=== PATIENT | male | born 1975 | race Hispanic/Latino ===

== ENCOUNTER 2017-01-22 06:45 | Emergency (ER) | payer SELFPAY ==
[2017-01-22] MEDS ORDERED: Dexamethasone 10 MG/ML VIAL ONE (07:07)
== END 2017-01-22 07:12 | disposition home or self-care (01) ==
LOC: ERS 06:45
DX: H00.011 Hordeolum externum right upper eyelid (principal); E11.9 Type 2 diabetes mellitus without complications; E78.5 Hyperlipidemia, unspecified; I10 Essential (primary) hypertension
CPT/HCPCS: 99283; J1100

== ENCOUNTER 2017-10-27 15:09 | Emergency (ER) | payer BC, SELFPAY ==
[2017-10-27 16:00] LABS: #Basophils 0.1 thou/uL (0.0-0.2); #Eosinphils 0.1 thou/uL (0.0-0.7); #Lymphocytes 1.2 thou/uL (1.20-3.40); #Monocytes 0.4 thou/uL (0.11-0.59); #Neutrophils 5.4 thou/uL (1.40-6.50); %Basophils 0.9 % (0.0-1.0); %Monocytes 5.5 % (0.0-10.0); %Neutrophils 75.5 % (42.0-75.0); Hemoglobin 16.5 g/dL (14.0-18.0); Mean Corpuscular HGB CONC 35.7 g/dL (32.0-36.0); Mean Corpuscular Hemoglobin 31.3 pg (27.0-31.0); Mean Corpuscular Volume 87.9 fL (78.0-98.0); Platelet Count 227 thou/uL (130-400); RBC Distribution Width 12.1 % (11.5-14.5); Red Blood Cell (RBC) Count 5.26 mill/uL (4.70-6.10); White Blood Cell (WBC) Count 7.2 thou/uL (4.8-10.8)
[2017-10-27 16:24] LABS: ALT (SGPT) 24 U/L (8-55); AST (SGOT) 13 U/L (5-34); Albumin 3.8 g/dL (3.5-5.0); Alkaline Phosphatase 93 U/L (40-150); Anion Gap 12 mmol/L (10-20); BUN (Urea Nitrogen) 26 mg/dL (8.9-20.6); Bilirubin, Total 1.7 mg/dL (0.2-1.2); CK (CPK) 27 U/L (30-200); Calc. Creatinine Clearance 0 mL/min (70-130); Calcium 9.2 mg/dL (7.8-10.44); Carbon Dioxide 27 mmol/L (22-29); Chloride 104 mmol/L (98-107); Estimated GFR-MDRD 36; Globulin 3.1 g/dL (2.4-3.5); Glucose 257 mg/dL (70-105); Potassium 4.6 mmol/L (3.5-5.1); Protein, Total 6.9 g/dL (6.0-8.3); Sodium 138 mmol/L (136-145)
[2017-10-27 16:28] LABS: CKMB 1.3 ng/mL (0-6.6); Troponin I Less than 0.010 ng/mL (< 0.028)
[2017-10-27] MEDS ORDERED: Carvedilol 25 MG TAB PO SCH (17:30)
--- NOTE | 2017-10-27 17:40 | CT ---
HEAD CT WITHOUT CONTRAST: Date: 10/27/17 COMPARISON: 11/24/02. TECHNIQUE: Noncontrast head CT is performed from the skull base to the skull vertex. FINDINGS: No parenchymal hemorrhage. No extra-axial hematoma. No midline shift. Basilar cisterns are patent. Br ain volume is age-appropriated. Cortical quintero-white matter differentiation preserved. Ventricles and sulci are patent and symmetric. Calvarium is intact. Adequate aeration of the sinuses and mastoid air cells. IMPRESSION: No acute intracranial process. POS: [facility]
[2017-10-27 17:48] LABS: Bilirubin Negative (Negative); Blood, Urine Small (Negative); Clarity CLEAR (Clear); Glucose, Urine (Dipstick) 250 mg/dL (Negative); Leukocyte Negative (Negative); Nitrite Negative (Negative); Protein, Urine (Dipstick) 300 mg/dL (Neg-Trace); Specific Gravity, Urine 1.014 (1.002-1.036); Urobilinogen 0.2 mg/dL (0.2-1.0)
[2017-10-27 17:50] LABS: Bacteria/HPF None Seen HPF (None Seen); Hyaline Casts/LPF 0-3 HYALINE CAST LPF (0-3 Hyaline); Pathc Cast-AUWi Flag 0.14 (0-2.49); Squamous Epithelial 0-3 HPF (0-3); WBC/HPF 0-3 HPF (0-3)
== END 2017-10-27 17:58 | disposition home or self-care (01) ==
LOC: ERS 15:09
DX: R42 Dizziness and giddiness (principal); E11.9 Type 2 diabetes mellitus without complications; E78.5 Hyperlipidemia, unspecified; I10 Essential (primary) hypertension; Z79.899 Other long term (current) drug therapy
CPT/HCPCS: 36415; 36416; 70450; 80053; 81003; 81015; 82550; 82553; 84484; 85025; 93005; 96360

== ENCOUNTER 2017-12-10 06:47 | Inpatient (IN) | payer BC ==
[2017-12-10] MEDS ORDERED: Clindamycin/D5W 600 mg/50 ml Premix Bag ONE (08:10)
[2017-12-10 08:15] LABS: Hemoglobin 15.1 g/dL (14.0-18.0); Mean Corpuscular HGB CONC 36.1 g/dL (32.0-36.0); Mean Corpuscular Hemoglobin 31.5 pg (27.0-31.0); Mean Corpuscular Volume 87.2 fL (78.0-98.0); Mean Platelet Volume 8.1 fL (7.4-10.4); Platelet Count 344 thou/uL (130-400); RBC Distribution Width 11.7 % (11.5-14.5); White Blood Cell (WBC) Count 12.6 thou/uL (4.8-10.8)
[2017-12-10 08:34] LABS: ALT (SGPT) 8 U/L (8-55); AST (SGOT) 6 U/L (5-34); Albumin 3.3 g/dL (3.5-5.0); Alkaline Phosphatase 122 U/L (40-150); Anion Gap 12 mmol/L (10-20); BUN (Urea Nitrogen) 18 mg/dL (8.9-20.6); Band 2 % (5-11); Bilirubin, Total 1.1 mg/dL (0.2-1.2); Calc. Creatinine Clearance 0 mL/min (70-130); Carbon Dioxide 28 mmol/L (22-29); Chloride 98 mmol/L (98-107); Estimated GFR-MDRD 32; Globulin 3.8 g/dL (2.4-3.5); Glucose 388 mg/dL (70-105); Lymphocytes 15 % (21-51); MDiff Complete? YES; Monocytes 2 % (0-10); Neutrophil 81 % (42-75); Potassium 3.9 mmol/L (3.5-5.1); Protein, Total 7.1 g/dL (6.0-8.3); RBC Morphology Normal; Sodium 134 mmol/L (136-145)
[2017-12-10] MEDS: HYDROcodone/Acetaminophen 5/325 mg Tablet PO PRN ×2 (13:16→17:02)
[2017-12-10 13:19] VITALS: BMI 26.3
[2017-12-10] MEDS ORDERED: Clindamycin/D5W 600 MG in Premix Bag 1 BAG IVPB SCH (15:00)
[2017-12-10] MEDS ORDERED: cloNIDine 0.1 MG TAB PO SCH (18:45)
[2017-12-10] MEDS ORDERED: Dextrose 50% Abboject 50 ML SYRINGE IVP PRN (18:46)
[2017-12-10] MEDS ORDERED: Dextrose 5% in Water 1,000 ML IV PRN (18:46)
[2017-12-10] MEDS ORDERED: Fentanyl 100 MCG/2 ML VIAL SLOW IVP PRN (18:46)
[2017-12-10] MEDS ORDERED: Insulin Regular 300 UNITS/3 ML VIAL SC PRN (18:46)
[2017-12-10] MEDS ORDERED: Acetaminophen 325 MG TAB PO PRN (19:44)
[2017-12-10] MEDS ORDERED: Pioglitazone HCl 15 MG TAB PO SCH (20:00)
[2017-12-10] MEDS ORDERED: cefTRIAXone\\ROCEPHIN 2 GM in Sodium Chloride 0.9% 100 ML IVPB SCH (20:00)
[2017-12-10] MEDS ORDERED: Carvedilol 25 MG TAB PO SCH (21:00)
[2017-12-10] MEDS: Sodium Chloride 0.45% 1,000 ML IV SCH (22:18)
[2017-12-10] MEDS: Carvedilol 25 MG TAB PO SCH (22:19)
[2017-12-10] MEDS: Aspirin 81 mg Enteric Coated Tablet PO SCH (22:19)
[2017-12-10] MEDS: Atorvastatin Calcium 10 MG TAB PO SCH (22:24)
--- NOTE | 2017-12-10 23:24 | CT ---
NONCONTRAST CT FACIAL BONES: 12/10/17 HISTORY: Facial cellulitis. FINDINGS: There is prominent edema and skin thickening involving the nose, predominantly on the right side with mild inflammatory changes seen involving the right sided facial subcutaneous soft tissues. There is thickening of the right platysma muscle. These findings may be related to patient's history of cellul itis. There is an enlarged level I lymph node present adjacent to the mandible on the right measuring 1.1 cm in short axis dimension with a few additional right sided lymph nodes which are likely reacti ve in origin. The orbits demonstrate a normal and symmetric appearance bilaterally. No post septal inflammatory georgette nges or fluid collection is identified. No fluid collection is seen in the subcutaneous soft tissues. There is a lucency seen within a posterior right mandibular molar which likely represents a dental ca leonor. Similar finding is seen involving what is felt to be the first right mandibular bicuspid tooth w ith prominent jesus as well as periapical lucency suggesting periapical abscess collection. Osseous s tructures are intact. There is polypoid mucosal thickening in each maxillary antrum. Mucosal thickening in each sphenoid si nus and bilateral ethmoidal air cells as well as each frontoethmoidal recess. Limited visualized mast oid air cells are clear. Lack of intravenous contrast does limit detail of the neck soft tissues. However, the bilateral parot id and submandibular glands demonstrate a grossly normal nonenhanced CT appearance. IMPRESSION: 1. Prominent subcutaneous soft tissue swelling and inflammatory changes involving the nose, much greater on the right. Lack of intravenous contrast does limit evaluation for small abscess collectio ns; although, no definitive well defined fluid collection is delineated on this exam. There are infla mmatory changes seen along the right facial soft tissues with thickening of the platysma. These findi ngs are likely related to cellulitis given the patient's clinical history. 2. Reactive lymphadenopathy. 3. Dental caries involving a posterior right mandibular molar as well as what is thought to be t he first bicuspid tooth right mandible. There is periapical lucency suggesting periapical abscess inv olving this tooth as well. 4. Sinus disease. POS: [facility]
[2017-12-11] MEDS: Clindamycin/D5W 900 MG in Premix Bag 1 BAG IVPB SCH ×5 (00:05→21:20)
--- NOTE | 2017-12-11 02:01 | HP ---
DATE OF ADMISSION: 12/10/2017 CHIEF COMPLAINT: Facial cellulitis. HISTORY OF PRESENT ILLNESS: The patient is a 42-year-old male who states that the day prior to comin g to the emergency room, he had what he felt was a zit in the inside of his nose. He popped it like a pimple and a lot of purulent material drained out of it. This actually occurred on Friday, which is 4 days ago. Since that time, he has noticed gradual increase in facial swelling and he began to have severe pain inside of his nose. He applied warm compresses as he had had symptoms similar to th is with a tooth a year ago. He denies any fever or changes in vision. He continued to take his usua l medications as he has diabetes. He does not check his blood sugar often though. When the pain bec gilmar too sharp and unbearable, he came to the emergency room for further evaluation. There, he rated his pain as a 9/10 and it was visually obvious he needed admission due to the swelling across of his whole face involving both eyes, nose, bridge of nose and upper lip. PAST MEDICAL HISTORY: Significant for diabetes type 2, hypertension, hyperlipidemia. He has had a f ractured right leg. PAST SURGICAL HISTORY: None. PAST PSYCHIATRIC HISTORY: None. SOCIAL HISTORY: Denies alcohol use or drug use. No smoking history either. He is and curre ntly working. ALLERGIES: He has no known drug allergies. MEDICATIONS: On admission include lisinopril 20 mg b.i.d., glyburide 2.5 mg daily, metformin 500 mg daily, carvedilol 25 mg b.i.d. and atorvastatin 20 mg at bedtime. REVIEW OF SYSTEMS: Constitutional: He denies fever, fatigue, chills. HEENT: He states he has had some vision changes with blurred vision and watering eyes. He has no sores in his ears, but his nose is extremely tender with sores and drainage. Pharynx without erythema or drainage. Neck: Denies p ainful range of motion. He does have some lymphadenopathy noted. Chest: Denies cough or dyspnea. Cardiovascular: Denies chest pain or palpitations. Abdomen: Denies nausea, vomiting, diarrhea. Ge nitourinary: Denies painful urination or blood in urine or stool. Musculoskeletal: Denies any back pain, musculoskeletal pain or limited range of motion. Skin: Positive for the aforementioned facia l changes of swelling, erythema, redness and tenderness starting with the nose and going laterally bi laterally. Neurologic: He denies headaches or trouble with mentation, paresthesias or areas of numb ness. Heme/Lymphatics: Positive for adenopathy in the neck. Otherwise, no other clots, swelling or edema. PHYSICAL EXAMINATION: At the time of admission, VITAL SIGNS: Blood pressure 174/102, pulse 84, respirations 16, temperature 98.8 with pain at a 9/10 , O2 sat 99% on room air. GENERAL: This is a well-developed, well-nourished male, alert, oriented and cooperati ve. HEENT: Completely disfigured face with swelling of bilateral cheeks, nose and upper lip area. It is warm to touch, red in color, hot, tender. Pupils equal, round and reactive to light with watering r ight eye. Extraocular muscles are intact. TMs and pharynx are clear. Nares have profuse thickened yellow-green discharge. NECK: Supple with adenopathy. CHEST: Clear to auscultation. HEART: Regular rate and rhythm. ABDOMEN: Soft, nontender, without organomegaly. GENITOURINARY: Deferred. EXTREMITIES: Without clubbing, cyanosis or edema. Normal range of motion present. SKIN: With the aforementioned facial changes of erythema, swelling, redness, tenderness and pain acr oss the nose, bridge, bilateral cheeks, eyes, upper lip. NEUROLOGIC: Cranial nerves appear grossly intact. Sensory exam is intact. Mental status is clear. I am not able to test gait and cerebellar function at this time. LABORATORY AND X-RAY FINDINGS: Lab work on admission, WBC 12.6, hemoglobin 15.1, hematocrit 41.9 wit h platelets at 344,000. Definite left shift with bandemia. Chemistries, sodium 134, potassium 3.9, chloride 98, CO2 28, BUN 18, creatinine 2.26 with a GFR at 32, glucose 388, albumin low at 3.3, globu orville high at 3.8. Liver functions are normal. Urinalysis is pending. CT of his face is pending. ASSESSMENT: 1. [id number] facial cellulitis. 2. Type 2 diabetes, uncontrolled. 3. Hypertension, uncontrolled secondary to pain. 4. General medical noncompliance to outpatient therapy. PLAN: 1. Will be IV antibiotics. We will try ceftriaxone and clindamycin. 2. CT of the face. 3. Pain management. 4. Control blood pressure. 5. Control blood sugar. 6. Serial reevaluation.
[2017-12-11 04:45] LABS: Anion Gap 13 mmol/L (10-20); BUN (Urea Nitrogen) 25 mg/dL (8.9-20.6); Calc. Creatinine Clearance 48 mL/min (70-130); Calcium 8.6 mg/dL (7.8-10.44); Carbon Dioxide 25 mmol/L (22-29); Cardiac Risk 4.6 (Less than 4.5); Chloride 96 mmol/L (98-107); Cholesterol 172 mg/dl (< 200 Desired); Estimated GFR-MDRD 29; Glucose 424 mg/dL (70-105); HDL Cholesterol 37 mg/dL (>60 Neg Risk); LDL Cholesterol, Calculated 87 mg/dL; Magnesium 1.5 mg/dL (1.6-2.6); Sodium 130 mmol/L (136-145); Triglycerides 241 mg/dL (Less than 150)
[2017-12-11 04:49] LABS: Band 7 % (5-11); Eosinophils 2 % (0-10); Hemoglobin 13.9 g/dL (14.0-18.0); Lymphocytes 12 % (21-51); MDiff Complete? YES; Mean Corpuscular HGB CONC 36.9 g/dL (32.0-36.0); Mean Corpuscular Hemoglobin 32.2 pg (27.0-31.0); Mean Corpuscular Volume 87.3 fL (78.0-98.0); Mean Platelet Volume 8.2 fL (7.4-10.4); Monocytes 9 % (0-10); Neutrophil 70 % (42-75); PLT Morphology Comment Appears Adequate; Platelet Count 337 thou/uL (130-400); RBC Distribution Width 11.5 % (11.5-14.5); White Blood Cell (WBC) Count 12.9 thou/uL (4.8-10.8)
[2017-12-11 06:06] LABS: Bilirubin Negative (Negative); Blood, Urine Trace (Negative); Clarity CLEAR (Clear); Glucose, Urine (Dipstick) >=1000 mg/dL (Negative); Leukocyte Negative (Negative); Nitrite Negative (Negative); Protein, Urine (Dipstick) 300 mg/dL (Neg-Trace); Specific Gravity, Urine 1.021 (1.002-1.036); pH, Urine 6.5 (5.0-9.0)
[2017-12-11 06:09] LABS: Bacteria/HPF None Seen HPF (None Seen); Hyaline Casts/LPF 0-3 HYALINE CAST LPF (0-3 Hyaline); Pathc Cast-AUWi Flag 0.14 (0-2.49); Squamous Epithelial 0-3 HPF (0-3); WBC/HPF 0-3 HPF (0-3)
[2017-12-11] MEDS: Sodium Chloride 0.45% 1,000 ML IV SCH ×3 (07:41→17:44)
[2017-12-11] MEDS ORDERED: metFORMIN 500 MG TAB PO SCH ×2 (08:00)
[2017-12-11] MEDS: glyBURIDE 2.5 MG TAB PO SCH (08:56)
[2017-12-11] MEDS: Carvedilol 25 MG TAB PO SCH ×2 (08:57→21:23)
[2017-12-11] MEDS: Pioglitazone HCl 15 MG TAB PO SCH (08:57)
[2017-12-11] MEDS ORDERED: Insulin Glargine 20 UNITS in Pre-Filled Syringe 1 EACH SC SCH (09:45)
[2017-12-11] MEDS ORDERED: SODIUM CHLORIDE 0.9% IVPB SCH (13:00)
[2017-12-11] MEDS ORDERED: CLINDAMYCIN IVPB SCH (13:00)
[2017-12-11] MEDS: HumaLOG 300 UNITS/3 ML VIAL SC PRN ×2 (13:30→21:24)
[2017-12-11] MEDS: HYDROcodone/Acetaminophen 5/325 mg Tablet PO PRN ×2 (17:43→21:28)
[2017-12-11] MEDS: Atorvastatin Calcium 10 MG TAB PO SCH (21:22)
[2017-12-11] MEDS: Aspirin 81 mg Enteric Coated Tablet PO SCH (21:22)
[2017-12-11] MEDS: Insulin Glargine 20 UNITS in Pre-Filled Syringe 1 EACH SC SCH (21:23)
[2017-12-11] MEDS: cefTRIAXone\\ROCEPHIN 2 GM in Sodium Chloride 0.9% 100 ML IVPB SCH (22:19)
[2017-12-12] MEDS: Clindamycin/D5W 900 MG in Premix Bag 1 BAG IVPB SCH ×4 (01:56→21:14)
[2017-12-12] MEDS: Sodium Chloride 0.45% 1,000 ML IV SCH ×3 (01:57→21:13)
[2017-12-12 04:25] LABS: #Basophils 0.1 thou/uL (0.0-0.2); #Eosinphils 0.3 thou/uL (0.0-0.7); #Lymphocytes 1.8 thou/uL (1.20-3.40); #Monocytes 1.3 thou/uL (0.11-0.59); #Neutrophils 9.3 thou/uL (1.40-6.50); %Basophils 0.6 % (0.0-1.0); %Eosinophils 2.7 % (0.0-10.0); %Lymphocytes 13.9 % (21.0-51.0); %Monocytes 10.4 % (0.0-10.0); %Neutrophils 72.4 % (42.0-75.0); Hemoglobin 12.7 g/dL (14.0-18.0); Mean Corpuscular Hemoglobin 31.6 pg (27.0-31.0); Mean Corpuscular Volume 87.7 fL (78.0-98.0); Mean Platelet Volume 7.8 fL (7.4-10.4); Platelet Count 365 thou/uL (130-400); RBC Distribution Width 11.6 % (11.5-14.5); Red Blood Cell (RBC) Count 4.01 mill/uL (4.70-6.10); White Blood Cell (WBC) Count 12.8 thou/uL (4.8-10.8)
[2017-12-12 04:37] LABS: Anion Gap 12 mmol/L (10-20); BUN (Urea Nitrogen) 24 mg/dL (8.9-20.6); Calc. Creatinine Clearance 56 mL/min (70-130); Calcium 8.5 mg/dL (7.8-10.44); Carbon Dioxide 27 mmol/L (22-29); Chloride 99 mmol/L (98-107); Estimated GFR-MDRD 35; Glucose 109 mg/dL (70-105); Potassium 3.4 mmol/L (3.5-5.1); Sodium 135 mmol/L (136-145)
[2017-12-12] MEDS: glyBURIDE 2.5 MG TAB PO SCH (09:02)
[2017-12-12] MEDS: Carvedilol 25 MG TAB PO SCH ×2 (09:03→21:15)
[2017-12-12] MEDS: Insulin Glargine 20 UNITS in Pre-Filled Syringe 1 EACH SC SCH ×2 (09:03→21:16)
[2017-12-12] MEDS: Pioglitazone HCl 15 MG TAB PO SCH (09:04)
--- NOTE | 2017-12-12 11:22 | ULT ---
BILATERAL RENAL ULTRASOUND COMPLETE: HISTORY: A 42-year-old male with a history of renal failure. FINDINGS: The right kidney measures 10.1 x 5.5 x 6.1 cm. The left kidney measures 10.5 x 5.8 x 5.7 cm. No evidence for renal hydronephrosis or perinephric process. The bladder is unremarkable. IMPRESSION: Unremarkable bilateral renal ultrasound. POS: [facility]
--- NOTE | 2017-12-12 12:31 | CON ---
DATE OF CONSULTATION: 12/12/2017 HISTORY OF PRESENT ILLNESS: Mr. Win is a 42-year-old male with known history of diabetes mellitus and admitted for facial cellulitis. He has been empirically treated with IV antibiotics. W e are now being consulted for his chronic renal failure. Please note this patient has known history of chronic renal failure with proteinuria. REVIEW OF SYSTEMS: Right facial swelling. No nausea, no vomiting, no chest pain, no shortness of br eath, no leg edema. No diarrhea, no constipation, no productive cough, no fever or chills, no abdomi nal pain. Appetite and energy level is fair. No headache, no diplopia, no hematuria, no diarrhea, n o constipation. MEDICATIONS: Assawoman 5/325 q.4 hours p.r.n., Ecotrin 81 mg tablet daily, Lipitor 10 mg at bedtime, Cor eg 25 mg p.o. b.i.d., ceftriaxone 2 grams IV q.24 hours, glucagon p.r.n., glyburide 2.5 mg p.o. q. da y, Humalog sliding scale, Actos 30 mg tab once a day, and 0.5% sodium chloride 125 mL per hour. PAST MEDICAL HISTORY: 1. Type 2 diabetes mellitus. 2. Chronic renal failure/proteinuria. 3. Hyperlipidemia. 4. Hypertension. PAST SURGICAL HISTORY: No significant surgeries. ALLERGIES: None. TRAUMA: Status post right leg fracture H7. IMMUNIZATIONS: Not up to date. The patient declining immunization. HOSPITALIZATIONS: Please see past medical history. FAMILY HISTORY: Positive family history of ESRD. Both parents were on dialysis. SOCIAL HISTORY: The patient lives in [place], 3 children. . 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 Education high school. No history of smoking, no alcohol. No drug abuse. No blood transfusi on. PHYSICAL EXAMINATION: VITAL SIGNS: Blood pressure is 90/103, heart rate 74, respiratory rate 14, temperature 98.2, pulse o x 98%. GENERAL: Awake, alert, comfortable, not in distress. SKIN: Adequate turgor. HEENT: Pinkish conjunctivae, anicteric sclerae. NECK: No neck mass, no carotid bruits, no JVD. CHEST: No deformities. LUNGS: Clear breath sounds, no wheezing, no crackles. HEART: Normal sinus rhythm. No murmur, gallops or rubs. ABDOMEN: Globular, soft, nontender, no masses. EXTREMITIES: No edema, no deformities. NEUROLOGIC: Awake, oriented to 3 spheres. Moving all extremities. No tremors, no asterixis, no lamar nirmal. LABORATORY DATA: On 12/12/2017 - white count 12.8, hemoglobin 12.7, sodium 135, potassium 3.4, chlor amarilis 99, carbon dioxide 27, BUN 24, creatinine 2.09, glucose 109, calcium 8.5. Further review of seru m creatinine shows the following 12/11/2017 creatinine 2.47. On 12/10/2017 creatinine 2.26. A urinalysis shows a protein of 300, RBC 7-10, WBC 0-3. ASSESSMENT AND PLAN: 1. Chronic renal failure - with the proteinuria and longstanding history of diabetes mellitus. He m ost likely has diabetic nephropathy. Renal function is noted to be stable. Continue gentle volume r epletion to see if we could further improve the renal function. The microscopic hematuria may be com patible with diabetic nephropathy. A renal ultrasound has been ordered. I had a long discussion wit h the patient regarding diagnosis and prognosis. I emphasized the importance of good diabetes contro l. 2. Hypertension. I will probably add nifedipine 30 mg XL tab once a day. Overall, agree with current management.
[2017-12-12] MEDS: HYDROcodone/Acetaminophen 5/325 mg Tablet PO PRN ×2 (16:21→21:16)
[2017-12-12] MEDS: hydrALAZINE 20 MG/ML VIAL SLOW IVP PRN ×2 (16:22→18:22)
[2017-12-12] MEDS: Aspirin 81 mg Enteric Coated Tablet PO SCH (21:15)
[2017-12-12] MEDS: Atorvastatin Calcium 10 MG TAB PO SCH (21:15)
[2017-12-12] MEDS: HumaLOG 300 UNITS/3 ML VIAL SC PRN (21:17)
[2017-12-12] MEDS: cefTRIAXone\\ROCEPHIN 2 GM in Sodium Chloride 0.9% 100 ML IVPB SCH (22:46)
[2017-12-13] MEDS: Clindamycin/D5W 900 MG in Premix Bag 1 BAG IVPB SCH ×4 (01:12→21:05)
[2017-12-13] MEDS: Sodium Chloride 0.45% 1,000 ML IV SCH ×3 (01:17→21:45)
[2017-12-13 04:16] LABS: #Basophils 0.1 thou/uL (0.0-0.2); #Eosinphils 0.3 thou/uL (0.0-0.7); #Lymphocytes 1.3 thou/uL (1.20-3.40); #Monocytes 0.8 thou/uL (0.11-0.59); %Basophils 0.6 % (0.0-1.0); %Eosinophils 2.6 % (0.0-10.0); %Lymphocytes 12.1 % (21.0-51.0); %Monocytes 7.9 % (0.0-10.0); %Neutrophils 76.8 % (42.0-75.0); Hemoglobin 13.5 g/dL (14.0-18.0); Mean Corpuscular HGB CONC 35.5 g/dL (32.0-36.0); Mean Corpuscular Hemoglobin 31.3 pg (27.0-31.0); Mean Corpuscular Volume 88.1 fL (78.0-98.0); Mean Platelet Volume 7.7 fL (7.4-10.4); Platelet Count 415 thou/uL (130-400); RBC Distribution Width 11.5 % (11.5-14.5); Red Blood Cell (RBC) Count 4.31 mill/uL (4.70-6.10); White Blood Cell (WBC) Count 10.4 thou/uL (4.8-10.8)
[2017-12-13 04:34] LABS: Anion Gap 12 mmol/L (10-20); BUN (Urea Nitrogen) 23 mg/dL (8.9-20.6); Calc. Creatinine Clearance 58 mL/min (70-130); Carbon Dioxide 27 mmol/L (22-29); Chloride 100 mmol/L (98-107); Estimated GFR-MDRD 36; Glucose 84 mg/dL (70-105); Potassium 3.4 mmol/L (3.5-5.1); Sodium 136 mmol/L (136-145)
[2017-12-13] MEDS: Carvedilol 25 MG TAB PO SCH ×2 (08:45→21:06)
[2017-12-13] MEDS: Pioglitazone HCl 15 MG TAB PO SCH (08:46)
[2017-12-13] MEDS: Insulin Glargine 20 UNITS in Pre-Filled Syringe 1 EACH SC SCH ×2 (08:47→21:05)
[2017-12-13] MEDS: glyBURIDE 2.5 MG TAB PO SCH (08:47)
[2017-12-13] MEDS ORDERED: NIFEdipine XL 30 MG TAB PO SCH (09:00)
--- NOTE | 2017-12-13 10:17 | PRG ---
DATE OF SERVICE: 12/13/2017 SERVICE: Renal Medicine. SUBJECTIVE: Mr. Win is a 42-year-old male who was seen for his chronic renal failure seco ndary to presumed diabetic nephropathy. He did have a longstanding history of diabetes mellitus and he had proteinuria. He has been given volume repletion and currently still receiving IV fluid and re nal function has been stabilizing. His initial creatinine on admission was noted at 2.47 and is now currently 2.04. He has no other complaints. Please note, he was admitted for facial cellulitis and this has been clinically improving with IV antibiotics. No complaints of chest pain or shortness of breath. PHYSICAL EXAMINATION: VITAL SIGNS: Blood pressure is 189/101, heart rate 77, respiratory rate 16, temperature 97.4, pulse ox 98%. GENERAL: Noted to be awake, alert, comfortable, not in distress. SKIN: Adequate turgor. HEENT: Pinkish conjunctivae, anicteric sclerae. NECK: No neck mass, no carotid bruits, no JVD. CHEST: No deformities. LUNGS: Clear breath sounds. HEART: Normal sinus rhythm. No murmur, no gallops, no rubs. ABDOMEN: Globular, soft, nontender, no masses. EXTREMITIES: No edema. No deformities. MEDICATIONS: Of 12/13/2017 was reviewed. LABORATORY DATA: Of 12/13/2017, sodium 136, potassium 3.4, chloride 100, carbon dioxide 27, BUN 23, creatinine 2.04, calcium 9.0. Renal ultrasound was within normal. Urinalysis of 12/11/2017 showed a protein of 300. ASSESSMENT AND PLAN: 1. Acute kidney injury/chronic renal failure - superimposed prerenal azotemia. Currently on IV hydr ation with improvement of the renal function. Continue supportive care. No indication for any dialy tic intervention. 2. Chronic renal failure, most likely secondary to diabetic nephropathy. For completion, I will be checking a hepatitis B surface antigen and hepatitis C antibody with this patient. 3. Hypertension, still not optimal. Recently, Procardia was added. Continue blood pressure medicat ions. 4. Facial cellulitis, clinically improving. Continue IV antibiotics.
[2017-12-13] MEDS: HumaLOG 300 UNITS/3 ML VIAL SC PRN (12:47)
[2017-12-13] MEDS ORDERED: Mupirocin 2% Ointment (Nasal) 1 GM TUBE EA NARE SCH (21:00)
[2017-12-13] MEDS: Mupirocin 2% Ointment 22 GM Tube TOP SCH (21:05)
[2017-12-13] MEDS: Aspirin 81 mg Enteric Coated Tablet PO SCH (21:06)
[2017-12-13] MEDS: Atorvastatin Calcium 10 MG TAB PO SCH (21:06)
[2017-12-13] MEDS: NIFEdipine XL 30 MG TAB PO SCH (21:06)
[2017-12-13] MEDS: cefTRIAXone\\ROCEPHIN 2 GM in Sodium Chloride 0.9% 100 ML IVPB SCH (22:31)
[2017-12-14] MEDS: Clindamycin/D5W 900 MG in Premix Bag 1 BAG IVPB SCH ×4 (02:40→20:08)
[2017-12-14] MEDS: Sodium Chloride 0.45% 1,000 ML IV SCH ×3 (02:42→17:47)
[2017-12-14 05:31] LABS: #Basophils 0.1 thou/uL (0.0-0.2); #Eosinphils 0.3 thou/uL (0.0-0.7); #Lymphocytes 1.8 thou/uL (1.20-3.40); #Monocytes 0.7 thou/uL (0.11-0.59); #Neutrophils 4.4 thou/uL (1.40-6.50); %Basophils 0.9 % (0.0-1.0); %Eosinophils 3.7 % (0.0-10.0); %Lymphocytes 24.5 % (21.0-51.0); %Monocytes 10.1 % (0.0-10.0); %Neutrophils 60.8 % (42.0-75.0); Hemoglobin 12.4 g/dL (14.0-18.0); Mean Corpuscular HGB CONC 35.4 g/dL (32.0-36.0); Mean Corpuscular Volume 87.7 fL (78.0-98.0); Mean Platelet Volume 7.4 fL (7.4-10.4); Platelet Count 355 thou/uL (130-400); RBC Distribution Width 11.5 % (11.5-14.5); Red Blood Cell (RBC) Count 3.99 mill/uL (4.70-6.10); White Blood Cell (WBC) Count 7.3 thou/uL (4.8-10.8)
[2017-12-14 05:36] LABS: Anion Gap 10 mmol/L (10-20); BUN (Urea Nitrogen) 21 mg/dL (8.9-20.6); Calc. Creatinine Clearance 63 mL/min (70-130); Calcium 8.5 mg/dL (7.8-10.44); Carbon Dioxide 26 mmol/L (22-29); Chloride 105 mmol/L (98-107); Estimated GFR-MDRD 40; Glucose 106 mg/dL (70-105); Potassium 3.2 mmol/L (3.5-5.1); Sodium 138 mmol/L (136-145)
[2017-12-14] MEDS: glyBURIDE 2.5 MG TAB PO SCH (08:06)
[2017-12-14] MEDS: NIFEdipine XL 30 MG TAB PO SCH ×2 (08:07→20:07)
[2017-12-14] MEDS: Insulin Glargine 20 UNITS in Pre-Filled Syringe 1 EACH SC SCH ×2 (08:07→20:09)
[2017-12-14] MEDS: Carvedilol 25 MG TAB PO SCH ×2 (08:07→20:08)
[2017-12-14] MEDS: Mupirocin 2% Ointment 22 GM Tube TOP SCH ×3 (08:08→20:10)
[2017-12-14] MEDS: Pioglitazone HCl 15 MG TAB PO SCH (08:08)
--- NOTE | 2017-12-14 10:12 | PRG ---
DATE OF SERVICE: 12/14/2017 RENAL MEDICINE SUBJECTIVE: Mr. Win is a 42-year-old male who was seen for his acute kidney injury on top of his chronic renal failure. He has underlying diabetic nephropathy. He also was initially admitt ed for facial cellulitis. He is clinically improving with the facial cellulitis, no acute events not ed last night. No new complaints. No chest pain, no shortness of breath. PHYSICAL EXAMINATION: VITAL SIGNS: Blood pressure 149/88, heart rate 73, respiratory rate 18, temperature 98.1, pulse ox 9 8%. GENERAL: Awake, alert, comfortable, not in distress. SKIN: Adequate turgor. HEENT: Pinkish conjunctivae, anicteric sclerae. NECK: No neck mass, no carotid bruits, no JVD. CHEST: No deformities. LUNGS: Clear breath sounds. HEART: Normal sinus rhythm. No murmur, no gallops or rubs. ABDOMEN: Globular, soft, nontender. No masses. EXTREMITIES: No edema, no deformities. MEDICATIONS: 12/14/2017 reviewed. LABORATORY DATA: 12/14/2017, white count 7.3, hemoglobin 12.4. Sodium 138, potassium 3.2, chloride 105, carbon dioxide 26, BUN 21, creatinine 1.87, glucose 106, calcium 8.5. ASSESSMENT AND PLAN: 1. Mild hypokalemia - KCl 40 mEq 1 tab x1 dose. 2. Acute kidney injury - hemodynamically mediated renal dysfunction, slowly improving with volume re pletion. 3. Chronic renal failure - with the proteinuria, longstanding history of diabetes, most likely diabe tic nephropathy. 4. Facial cellulitis, improving on IV antibiotics. Currently on clindamycin and IV ceftriaxone. We will go ahead and recheck another base met and CBC in a.m. as well as for hepatitis B and C.
[2017-12-14] MEDS ORDERED: Potassium Chloride 20 MEQ TAB PO SCH (10:15)
[2017-12-14] MEDS: HumaLOG 300 UNITS/3 ML VIAL SC PRN (13:13)
[2017-12-14] MEDS: Atorvastatin Calcium 10 MG TAB PO SCH (20:07)
[2017-12-14] MEDS: Aspirin 81 mg Enteric Coated Tablet PO SCH (20:08)
[2017-12-14] MEDS: Sodium Chloride 0.65% Nasal 44 ML BOT EA NARE SCH (20:11)
[2017-12-14] MEDS: cefTRIAXone\\ROCEPHIN 2 GM in Sodium Chloride 0.9% 100 ML IVPB SCH (20:14)
[2017-12-15] MEDS: Clindamycin/D5W 900 MG in Premix Bag 1 BAG IVPB SCH ×4 (01:40→20:46)
[2017-12-15] MEDS: Sodium Chloride 0.45% 1,000 ML IV SCH ×3 (03:45→20:47)
[2017-12-15 05:09] LABS: #Basophils 0.1 thou/uL (0.0-0.2); #Eosinphils 0.3 thou/uL (0.0-0.7); #Lymphocytes 1.5 thou/uL (1.20-3.40); #Monocytes 0.6 thou/uL (0.11-0.59); #Neutrophils 3.6 thou/uL (1.40-6.50); %Basophils 1.1 % (0.0-1.0); %Eosinophils 4.1 % (0.0-10.0); %Lymphocytes 24.5 % (21.0-51.0); %Monocytes 10.5 % (0.0-10.0); %Neutrophils 59.8 % (42.0-75.0); Hemoglobin 12.5 g/dL (14.0-18.0); Mean Corpuscular HGB CONC 35.7 g/dL (32.0-36.0); Mean Corpuscular Hemoglobin 31.7 pg (27.0-31.0); Mean Corpuscular Volume 88.6 fL (78.0-98.0); Mean Platelet Volume 7.6 fL (7.4-10.4); Platelet Count 359 thou/uL (130-400); RBC Distribution Width 11.7 % (11.5-14.5); Red Blood Cell (RBC) Count 3.93 mill/uL (4.70-6.10); White Blood Cell (WBC) Count 6.1 thou/uL (4.8-10.8)
[2017-12-15 05:27] LABS: Anion Gap 12 mmol/L (10-20); BUN (Urea Nitrogen) 19 mg/dL (8.9-20.6); Calc. Creatinine Clearance 65 mL/min (70-130); Calcium 8.3 mg/dL (7.8-10.44); Carbon Dioxide 23 mmol/L (22-29); Chloride 107 mmol/L (98-107); Estimated GFR-MDRD 41; Glucose 91 mg/dL (70-105); Potassium 3.4 mmol/L (3.5-5.1); Sodium 139 mmol/L (136-145)
[2017-12-15 05:44] LABS: HBSAg Index 0.14 S/CO (0-0.99); Hep B Surf Ag Non-Reactive S/CO (NonReactive); Hep C IgG Ab Non-Reactive (NonReactive); Hep C Index 0.25 S/CO (0-0.79)
[2017-12-15] MEDS: NIFEdipine XL 30 MG TAB PO SCH ×2 (07:41→20:48)
[2017-12-15] MEDS: Carvedilol 25 MG TAB PO SCH ×2 (07:41→20:48)
[2017-12-15] MEDS: glyBURIDE 2.5 MG TAB PO SCH (07:41)
[2017-12-15] MEDS: Insulin Glargine 20 UNITS in Pre-Filled Syringe 1 EACH SC SCH ×2 (07:43→20:49)
[2017-12-15] MEDS: Sodium Chloride 0.65% Nasal 44 ML BOT EA NARE SCH ×2 (07:44→20:50)
[2017-12-15] MEDS: Mupirocin 2% Ointment 22 GM Tube TOP SCH ×3 (07:45→20:49)
[2017-12-15] MEDS: Pioglitazone HCl 15 MG TAB PO SCH (08:37)
[2017-12-15] MEDS: Potassium Chloride 20 MEQ TAB PO SCH (08:37)
--- NOTE | 2017-12-15 09:00 | PRG ---
DATE OF SERVICE: 12/15/2017 SUBJECTIVE: Mr. Win is a 42-year-old male, who was admitted for facial cellulitis - start ed on IV antibiotics and seen by the Renal Service for his acute kidney injury on top of his chronic renal failure. He has superimposed prerenal azotemia, which improved with volume repletion. He has also underlying chronic renal failure secondary to his diabetic nephropathy. This morning, he has no new complaints. Denies any shortness of breath. Denies any chest pain. OBJECTIVE: VITAL SIGNS: Blood pressure 186/99, heart rate 76, respiratory 16, temperature 98, and pulse ox 100% . GENERAL: Noted to be awake, alert, comfortable, not in overt distress. SKIN: Adequate turgor. HEENT: He has pinkish conjunctivae, anicteric sclerae. NECK: No neck mass, no carotid bruits, no JVD. CHEST: No deformities. LUNGS: Clear breath sounds. No wheezing, no crackles. HEART: Normal sinus rhythm. No murmur, no gallops or rubs. ABDOMEN: Globular, soft, nontender, no masses. EXTREMITIES: No edema, no deformities. MEDICATIONS: On 12/15/2017 was reviewed. LABORATORY DATA: On 12/15/2017 - White count 6.1, hemoglobin 12.5. Hepatitis B and C negative. 01/2018 - Sodium 139, potassium 3.4, chloride 107, carbon dioxide 23, BUN 19, creatinine 1.82, glucos e 91, and calcium 8.3. ASSESSMENT AND PLAN: 1. Mild hypokalemia - potassium chloride 40 mEq 1 tab now. 2. Acute kidney injury - superimposed hemodynamically mediated renal dysfunction. Much improved trev al function with IV hydration. 3. Chronic renal failure - with the proteinuria and longstanding history of diabetes mellitus. He m ost likely has underlying diabetic nephropathy. Continue supportive care. 4. Facial cellulitis on IV antibiotics, clinically improving. Overall, agree with current managemen t.
[2017-12-15] MEDS: hydrALAZINE 20 MG/ML VIAL SLOW IVP PRN (18:04)
[2017-12-15] MEDS: Aspirin 81 mg Enteric Coated Tablet PO SCH (20:48)
[2017-12-15] MEDS: Atorvastatin Calcium 10 MG TAB PO SCH (20:48)
[2017-12-15] MEDS: cefTRIAXone\\ROCEPHIN 2 GM in Sodium Chloride 0.9% 100 ML IVPB SCH (20:49)
[2017-12-16] MEDS: Clindamycin/D5W 900 MG in Premix Bag 1 BAG IVPB SCH ×2 (01:47→10:25)
[2017-12-16] MEDS: Sodium Chloride 0.45% 1,000 ML IV SCH (03:45)
[2017-12-16 04:38] LABS: Anion Gap 10 mmol/L (10-20); BUN (Urea Nitrogen) 17 mg/dL (8.9-20.6); Calc. Creatinine Clearance 66 mL/min (70-130); Calcium 8.2 mg/dL (7.8-10.44); Carbon Dioxide 26 mmol/L (22-29); Chloride 106 mmol/L (98-107); Estimated GFR-MDRD 42; Glucose 154 mg/dL (70-105); Potassium 3.6 mmol/L (3.5-5.1); Sodium 138 mmol/L (136-145)
[2017-12-16] MEDS ORDERED: NIFEdipine XL 30 MG TAB ONE (07:40)
[2017-12-16] MEDS ORDERED: Carvedilol 25 MG TAB ONE (07:40)
[2017-12-16] MEDS ORDERED: Clindamycin/D5W 900 mg/50 ml Premix Bag ONE (07:41)
[2017-12-16] MEDS ORDERED: Potassium Chloride 20 MEQ TAB ONE (07:42)
[2017-12-16] MEDS: glyBURIDE 2.5 MG TAB PO SCH (10:25)
[2017-12-16] MEDS: Potassium Chloride 20 MEQ TAB PO SCH (10:25)
[2017-12-16] MEDS: Mupirocin 2% Ointment 22 GM Tube TOP SCH ×3 (10:26→20:32)
[2017-12-16] MEDS: Carvedilol 25 MG TAB PO SCH ×2 (10:26→20:32)
[2017-12-16] MEDS: NIFEdipine XL 30 MG TAB PO SCH ×2 (10:26→20:32)
[2017-12-16] MEDS: Pioglitazone HCl 15 MG TAB PO SCH (10:27)
[2017-12-16] MEDS: Sodium Chloride 0.65% Nasal 44 ML BOT EA NARE SCH ×2 (10:27→20:33)
[2017-12-16] MEDS: Insulin Glargine 20 UNITS in Pre-Filled Syringe 1 EACH SC SCH ×2 (12:32→20:32)
[2017-12-16] MEDS ORDERED: Clindamycin 150 MG CAP PO SCH (15:00)
[2017-12-16] MEDS: diphenhydrAMINE 25 MG CAP PO SCH ×2 (17:01→23:58)
[2017-12-16] MEDS ORDERED: Azithromycin 250 MG TAB PO SCH (18:00)
[2017-12-16] MEDS: Atorvastatin Calcium 10 MG TAB PO SCH (20:31)
[2017-12-16] MEDS: Doxycycline 100 MG CAP PO SCH (20:31)
[2017-12-16] MEDS: Aspirin 81 mg Enteric Coated Tablet PO SCH (20:32)
[2017-12-16] MEDS ORDERED: Cefdinir 300 MG CAP PO SCH (21:00)
[2017-12-17 04:27] LABS: #Basophils 0.1 thou/uL (0.0-0.2); #Eosinphils 0.4 thou/uL (0.0-0.7); #Monocytes 0.7 thou/uL (0.11-0.59); %Basophils 0.6 % (0.0-1.0); %Eosinophils 4.7 % (0.0-10.0); %Lymphocytes 24.7 % (21.0-51.0); %Monocytes 8.3 % (0.0-10.0); %Neutrophils 61.8 % (42.0-75.0); Hemoglobin 12.9 g/dL (14.0-18.0); Mean Corpuscular HGB CONC 34.7 g/dL (32.0-36.0); Mean Corpuscular Hemoglobin 30.9 pg (27.0-31.0); Mean Corpuscular Volume 89.1 fL (78.0-98.0); Mean Platelet Volume 7.4 fL (7.4-10.4); Platelet Count 446 thou/uL (130-400); RBC Distribution Width 11.8 % (11.5-14.5); Red Blood Cell (RBC) Count 4.19 mill/uL (4.70-6.10); White Blood Cell (WBC) Count 8.1 thou/uL (4.8-10.8)
[2017-12-17 04:51] LABS: Anion Gap 11 mmol/L (10-20); BUN (Urea Nitrogen) 20 mg/dL (8.9-20.6); Calc. Creatinine Clearance 61 mL/min (70-130); Calcium 8.5 mg/dL (7.8-10.44); Carbon Dioxide 25 mmol/L (22-29); Chloride 108 mmol/L (98-107); Estimated GFR-MDRD 39; Glucose 108 mg/dL (70-105); Potassium 3.7 mmol/L (3.5-5.1); Sodium 140 mmol/L (136-145)
[2017-12-17] MEDS: diphenhydrAMINE 25 MG CAP PO SCH (05:17)
[2017-12-17] MEDS: Pioglitazone HCl 15 MG TAB PO SCH (07:27)
[2017-12-17] MEDS: glyBURIDE 2.5 MG TAB PO SCH (07:28)
[2017-12-17] MEDS: Doxycycline 100 MG CAP PO SCH (07:28)
[2017-12-17] MEDS: Potassium Chloride 20 MEQ TAB PO SCH (07:28)
[2017-12-17] MEDS: NIFEdipine XL 30 MG TAB PO SCH (07:29)
[2017-12-17] MEDS: Mupirocin 2% Ointment 22 GM Tube TOP SCH (07:31)
[2017-12-17] MEDS: Sodium Chloride 0.65% Nasal 44 ML BOT EA NARE SCH (07:31)
[2017-12-17] MEDS: Carvedilol 25 MG TAB PO SCH (07:31)
[2017-12-17] MEDS: Insulin Glargine 20 UNITS in Pre-Filled Syringe 1 EACH SC SCH (07:33)
[2017-12-17 08:00] VITALS: BP 160/95; TEMP 98
--- NOTE | 2017-12-17 11:30 | PRG ---
DATE OF SERVICE: 12/17/2017 SUBJECTIVE: Mr. Win is a 42-year-old male who was seen for his acute kidney injury on top of his chronic renal failure. He had a superimposed hemodynamically mediated renal dysfunction, whi ch improved with volume repletion. He also has a baseline abnormal creatinine secondary to his diabe tic nephropathy. He was initially admitted for facial cellulitis. He received IV antibiotics. His facial cellulitis much improved and the renal function improved to a creatinine of 1.9. No other com plaints today, no chest pain or shortness of breath. OBJECTIVE: VITAL SIGNS: Blood pressure 160/95, heart rate 72, respiratory rate 16, temperature 98, pulse ox 99% room air. GENERAL: Awake, alert, ambulatory, comfortable. SKIN: Adequate turgor. HEENT: He has pinkish conjunctivae, anicteric sclerae. NECK: No neck mass, no carotid bruits, no JVD. CHEST: No deformities. LUNGS: Clear breath sounds. No wheezing, no crackles. HEART: Normal sinus rhythm. No murmur, no gallops, no rubs. ABDOMEN: Globular, soft, nontender, no masses. EXTREMITIES: No edema, no deformities. MEDICATIONS: Of 12/17/2017 was reviewed. LABORATORY DATA: Laboratories of 12/17/2017, white count 8.1, hemoglobin 12.9. Sodium 140, potassiu m 3.7, chloride 108, carbon dioxide 25, BUN 20, creatinine 1.92, calcium 8.5. ASSESSMENT AND PLAN: 1. Acute kidney injury - hemodynamically mediated renal dysfunction, much improved with IV hydration . 2. Chronic renal failure secondary to diabetic nephropathy. Creatinine 1.9. He is near baseline. Continue supportive care. Continue to optimize diabetes control as well as blood pressure control. 3. Hypertension. The patient to continue current blood pressure medications. 4. Facial cellulitis, clinically improved on p.o. antibiotics. Agree with current management. Agree with planned discharge. The patient was instructed to follow u p in the renal clinic in the next few weeks.
== END 2017-12-17 10:06 | disposition home or self-care (01) | DRG 603 ==
LOC: ERS 06:47 → ERHOLD 08:58 → T4-B 12:37
PROVIDERS: ADMIT Specialist; ATTEND Specialist
DX: L03.211 Cellulitis of face (principal); N17.9 Acute kidney failure, unspecified; E78.5 Hyperlipidemia, unspecified; E11.22 Type 2 diabetes mellitus with diabetic chronic kidney disease; I12.9 Hypertensive chronic kidney disease with stage 1 through stage 4 chronic kidney disease, or unspecified chronic kidney disease; N18.9 Chronic kidney disease, unspecified; E11.21 Type 2 diabetes mellitus with diabetic nephropathy; R31.29 Other microscopic hematuria; E87.6 Hypokalemia; E11.65 Type 2 diabetes mellitus with hyperglycemia; Z84.1 Family history of disorders of kidney and ureter
CPT/HCPCS: 36415; 36416; 70486; 76770; 80048; 80053; 80061; 81001; 83036; 83735; 85025; 86803; 87340; 96365; A4216; J0360; J0696; J1815; J3010; J3490; J7050

== ENCOUNTER 2019-09-07 15:23 | Inpatient (IN) | payer BC, OTHER ==
[2019-09-07 16:08] LABS: Hemoglobin 18.2 g/dL (14.0-18.0); Mean Corpuscular HGB CONC 34.4 g/dL (32.0-36.0); Mean Corpuscular Hemoglobin 31.4 pg (27.0-31.0); Mean Corpuscular Volume 91.4 fL (78.0-98.0); Mean Platelet Volume 9.3 fL (7.4-10.4); Platelet Count 315 thou/uL (130-400); RBC Distribution Width 12.1 % (11.5-14.5); Red Blood Cell (RBC) Count 5.78 mill/uL (4.70-6.10)
[2019-09-07 16:28] LABS: ALT (SGPT) 10 U/L (8-55); AST (SGOT) 11 U/L (5-34); Albumin 3.4 g/dL (3.5-5.0); Alkaline Phosphatase 140 U/L (40-110); Anion Gap 12 mmol/L (10-20); BUN (Urea Nitrogen) 32 mg/dL (8.9-20.6); Bilirubin, Total 1.5 mg/dL (0.2-1.2); Calc. Creatinine Clearance 0 mL/min (70-130); Carbon Dioxide 29 mmol/L (22-29); Chloride 97 mmol/L (98-107); Estimated GFR-MDRD 16; Globulin 3.7 g/dL (2.4-3.5); Glucose 259 mg/dL (70-105); Potassium 4.1 mmol/L (3.5-5.1); Protein, Total 7.2 g/dL (6.0-8.3); Sodium 134 mmol/L (136-145)
[2019-09-07 16:38] LABS: Band 1 % (5-11); Lymphocytes 18 % (21-51); MDiff Complete? YES; Monocytes 8 % (0-10); Neutrophil 72 % (42-75); Platelet Morphology Comment Appears Adequate; RBC Morphology Normal
[2019-09-07] MEDS ORDERED: hydrALAZINE 20 MG/ML VIAL ONE (17:24)
[2019-09-07] MEDS ORDERED: NIFEdipine XL 30 MG TAB ONE (19:24)
[2019-09-07 20:14] VITALS: BMI 26.4
[2019-09-07] MEDS ORDERED: Dextrose 50% Abboject 50 ML SYRINGE IVP PRN (20:21)
[2019-09-07] MEDS ORDERED: HumaLOG 300 UNITS/3 ML VIAL SC PRN ×2 (20:21)
[2019-09-07] MEDS ORDERED: Dextrose 5% in Water 1,000 ML IV PRN (20:21)
[2019-09-07] MEDS ORDERED: Ondansetron PF 4 MG/2 ML Vial SLOW IVP PRN (20:22)
[2019-09-07] MEDS ORDERED: cloNIDine 0.1 MG TAB PO PRN (20:24)
[2019-09-07] MEDS: Carvedilol 25 MG TAB PO SCH (20:47)
[2019-09-07] MEDS: NIFEdipine XL 30 MG TAB PO SCH (20:47)
[2019-09-07] MEDS: Sodium Chloride 0.9% 1,000 ML IV SCH (20:48)
[2019-09-07 21:58] LABS: Bacteria/HPF None Seen HPF (None Seen); Bilirubin Negative (Negative); Blood, Urine Trace (Negative); Clarity Clear (Clear); Glucose, Urine (Dipstick) >=1000 mg/dL (Negative); Leukocyte Negative Leu/uL (Negative); Nitrite Negative (Negative); Protein, Urine (Dipstick) 300 mg/dL (Neg-Trace); RBC/HPF 0-3 HPF (0-3); Squamous Epithelial None Seen HPF (0-3); Urobilinogen Normal mg/dL (Less than 2); WBC/HPF 0-3 HPF (0-3)
[2019-09-07 22:01] LABS: Urine Culture Reflex No No
[2019-09-07] MEDS: Acetaminophen 325 MG TAB PO PRN (23:29)
--- NOTE | 2019-09-08 01:11 | HP ---
CHIEF COMPLAINT ON ADMISSION: Hypertensive crisis, renal failure and dehydration. HISTORY OF PRESENT ILLNESS: The patient is a 43-year-old male who came back from [place] just recently. He states that he has been over there for 2 weeks. He became ill 3 days ago and has not been able to eat or drink anything over the last 3 days. He came in to Dr. Archer' office very dry and lethargic. At that point, Dr. Archer elected to send him to the emergency room for further evaluation. In the ER at [place], his blood sugar was noted to be 259. His BUN was 32 and creatinine 4.0. His usual creatinine is 2. He was noted on CBC to be hemoconcentrated with a hemoglobin of 18 and hematocrit of 52.9. Blood pressure on arrival also was 210 /89. Dr. Archer was contacted about admission orders and I came to see him in the ER. PAST MEDICAL HISTORY: Significant for general medical noncompliance. He has type 2 diabetes, hypertension, history of renal insufficiency and he has been seeing Dr. Sims for this since 2018. He also has a history of cellulitis for which he has been hospitalized in the past and dyslipidemia. He has had a fractured right leg in the past as well. PAST SURGICAL HISTORY: Negative. ALLERGIES: HE HAS NO KNOWN DRUG ALLERGIES. SOCIAL HISTORY: He is a nonsmoker. Does not drink alcohol or use illicit drugs. 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 MEDICATIONS: 1. Glyburide 5 mg b.i.d. 2. Actos 30 mg daily. 3. Nifedipine 30 mg b.i.d. 4. Lantus 20 units b.i.d. 5. Carvedilol 25 mg b.i.d. 6. Atorvastatin 10 mg at bedtime. 7. 81 mg of aspirin daily. REVIEW OF SYSTEMS: At the time of admission generally, he is fatigued, weak. Denies fever, cough, vomiting, or diarrhea. HEENT: Denies any sores or drainage from eyes, ears, nose, or throat PHARYNX: He has very dry mouth. CHEST: Denies cough or dyspnea. CARDIOVASCULAR: Denies chest pain, but has had tachycardia, palpitations ABDOMEN: Denies nausea, vomiting, diarrhea, but he has had some much nausea. He could not eat for the last 3 days. : Denies blood in urine or stool or painful defecation. MUSCULOSKELETAL: Generally weak, but no acute trauma to the muscle groups or joints. SKIN: Denies new rashes or lesions aside from a violaceous rash on the left side of his neck. NEUROLOGIC: He admits to headaches, but denies blurred vision, or trouble with mentation. ENDOCRINE: When asked what his blood sugar was, he says I do not know, I never check it. PHYSICAL EXAMINATION: At the time of admission: GENERAL: This is an alert responsive Latin-[place] male in no acute distress, who appears weak. VITAL SIGNS: Blood pressure is noted to be 206/114 and he has been given IV hydralazine for this. P. 99, Temp. 98.4, O2 luis carlos 99% ra HEENT: Normocephalic, atraumatic. Pupils are equal, round, and reactive to light. Extraocular muscles are intact. TMs nares are clear. Pharynx is dry. NECK: Supple with violaceous lesions on the left side of his neck, irregular in size and shape. CHEST: Clear to auscultation. HEART: Regular rate and rhythm. Tachycardic. ABDOMEN: Soft without organomegaly, nontender. : Deferred. EXTREMITIES: Without clubbing, cyanosis, or edema. SKIN: With the aforementioned violaceous rash on the left side of his neck and no other acute lesions noted. Turgor is poor. EXTREMITIES: Without clubbing, cyanosis, or edema. Symmetric muscular tone development noted. NEUROLOGIC: Cranial nerves are intact. Gait and cerebellar function intact. Sensory exam is grossly intact. Mental status is at baseline. LAB WORK: On admission, WBCs are 10, hemoglobin 18.2, hematocrit 52.9 with platelets of 315. Sodium is 134, potassium 4.1, chloride 97, CO2 of 29, BUN is 32, creatinine 4.08 with a glucose of 259, bilirubin 1.5, alkaline phos at 140. Troponins negative at 0.25. CK at 25. Albumin is low at 0.9. Remainder of lab studies are pending at this time. ASSESSMENT: 1. Hypertensive crisis. 2. Renal insufficiency due to dehydration. 3. Acute dehydration. 4. Insulin-dependent diabetic. 5. General medical noncompliance with all care. PLAN: Plan will be control of his blood pressure, IV rehydration, sliding scale insulin to control his blood sugar. Antiemetics as needed. We will consult Dr. Sims concerning renal function and serially re-evaluate him. Job ID: [id number] [facility]
[2019-09-08] MEDS: Sodium Chloride 0.9% 1,000 ML IV SCH ×5 (02:02→23:41)
[2019-09-08 05:29] LABS: #Basophils 0.1 thou/uL (0.0-0.2); #Eosinphils 0.3 thou/uL (0.0-0.7); #Lymphocytes 1.2 thou/uL (1.20-3.40); #Monocytes 0.7 thou/uL (0.11-0.59); #Neutrophils 4.8 thou/uL (1.40-6.50); %Basophils 0.9 % (0.0-1.0); %Eosinophils 3.7 % (0.0-10.0); %Lymphocytes 17.3 % (21.0-51.0); %Monocytes 9.7 % (0.0-10.0); %Neutrophils 68.4 % (42.0-75.0); Hemoglobin 15.2 g/dL (14.0-18.0); Mean Corpuscular HGB CONC 33.7 g/dL (32.0-36.0); Mean Corpuscular Volume 91.9 fL (78.0-98.0); Mean Platelet Volume 8.8 fL (7.4-10.4); Platelet Count 271 thou/uL (130-400); RBC Distribution Width 11.8 % (11.5-14.5); Red Blood Cell (RBC) Count 4.89 mill/uL (4.70-6.10); White Blood Cell (WBC) Count 7.1 thou/uL (4.8-10.8)
[2019-09-08 05:34] LABS: Hemoglobin A1c 11.7 % (4.0-6.0)
[2019-09-08 05:53] LABS: Anion Gap 10 mmol/L (10-20); BUN (Urea Nitrogen) 27 mg/dL (8.9-20.6); Calc. Creatinine Clearance 33 mL/min (70-130); Calcium 7.8 mg/dL (7.8-10.44); Carbon Dioxide 25 mmol/L (22-29); Cardiac Risk 5.9 (Less than 4.5); Chloride 104 mmol/L (98-107); Cholesterol 196 mg/dl (< 200 Desired); Estimated GFR-MDRD 19; Glucose 262 mg/dL (70-105); HDL Cholesterol 33 mg/dL (>60 Neg Risk); LDL Cholesterol, Calculated 118 mg/dL; Potassium 3.6 mmol/L (3.5-5.1); Sodium 135 mmol/L (136-145); Triglycerides 226 mg/dL (Less than 150)
[2019-09-08] MEDS ORDERED: Albumin 25% 25 GM/100 ML BOT IVPB ONE (08:10)
[2019-09-08] MEDS: NIFEdipine XL 30 MG TAB PO SCH ×2 (08:57→20:25)
[2019-09-08] MEDS ORDERED: Ondansetron HCl/PF 8 MG in Sodium Chloride 0.9% 50 ML IVPB PRN (08:57)
[2019-09-08] MEDS: Carvedilol 25 MG TAB PO SCH ×2 (08:59→20:24)
[2019-09-08] MEDS: Aspirin Chewable 81 MG TAB PO SCH (08:59)
[2019-09-08] MEDS: Albumin 25% 25 GM/100 ML BOT IVPB SCH ×3 (09:20→23:41)
[2019-09-08] MEDS: Insulin Glargine 20 UNITS in Pre-Filled Syringe 1 EACH SC SCH ×2 (09:22→20:25)
[2019-09-08] MEDS: Pioglitazone HCl 45 MG TAB PO SCH (09:22)
[2019-09-08] MEDS: Acetaminophen 325 MG TAB PO PRN (09:35)
--- NOTE | 2019-09-08 10:25 | CON ---
DATE OF CONSULTATION: HISTORY OF PRESENT ILLNESS: Mr. Win is a 43-year-old male who was admitted due to labile hypertension as well as acute kidney injury. Acute kidney injury was felt to be related to a hemodynamically-mediated renal dysfunction. The patient has had a history of decreased p.o. intake over the last few days. In addition, he has been having some nausea and ? of diarrhea. We were now consulted for further management of his acute kidney injury on top of his chronic renal failure. REVIEW OF SYSTEMS: Positive for generalized malaise, decreased appetite, decreased p.o. intake, occasional nausea, ? of diarrhea. No productive cough. No fever or chills. No syncopal episode. No abdominal pain. No headache. No sore throat. No shortness of breath. No chest pain. HOME MEDICATIONS: In the past included: 1. Glyburide 5 mg p.o. b.i.d. 2. Actos 30 mg tablet once a day. 3. Nifedipine 30 mg p.o. b.i.d. 4. Lantus 20 units subcu b.i.d. 5. Atorvastatin 10 mg tablet at bedtime. 6. Aspirin 81 mg tablet daily. Please note, he has been noncompliant with his medications. PAST MEDICAL HISTORY: 1. Chronic renal failure from diabetic nephropathy, status post acute kidney injury. 2. History of proteinuria. 3. Hyperlipidemia. 4. Hypertension. 5. History of status post facial cellulitis. PAST SURGICAL HISTORY: No significant history of surgeries. ALLERGIES: NONE. TRAUMA: Status post right leg fracture. IMMUNIZATIONS: Not up-to-date, declining. HOSPITALIZATIONS: Please see Past Medical History. FAMILY HISTORY: Positive family history of ESRD. Both parents were on dialysis. SOCIAL HISTORY: The patient lives in [place]. He is , 3 children. 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 Education; high school. No history of smoking. No alcohol. No IV drug abuse. No blood transfusion. PHYSICAL EXAMINATION: VITAL SIGNS: Blood pressure 173/99, heart rate 81, respiratory rate 16, temperature 98.1, and O2 saturation 99%. GENERAL: The patient was noted to be awake, alert, comfortable, not in distress. SKIN: Adequate turgor. HEENT: Pinkish conjunctivae. Anicteric sclerae. No neck mass. No carotid bruits. No JVD. CHEST: No deformities. LUNGS: Clear breath sounds. No wheezing. No crackles. HEART: Normal sinus rhythm. No murmur. No gallops. No rubs. ABDOMEN: Globular, soft, nontender. No masses. EXTREMITIES: No edema. No deformities. NEUROLOGIC: Awake, oriented to 3 spheres. Moving all extremities. No tremors. No asterixis. No ataxia. CURRENT HOSPITAL MEDICATIONS: Include: 1. Humalog sliding scale. 2. Protonix 40 mg tablet once a day. 3. Pioglitazone 45 mg q.a.m. 4. Rosuvastatin 20 mg at bedtime. 5. Normal saline at 125 mL/hour. LABORATORIES: Of September 08, 2019; white count 7.1, hemoglobin 15.2. Urinalysis of September 07, 2019, specific gravity 1.009, protein is 300, rbc 0 to 3, wbc 0 to 3, no pigmented granular casts noted. Sodium 135, potassium 3.6, chloride 104, carbon dioxide 25, BUN 27, creatinine 3.49, GFR 19 mL/minute, glucose 262, calcium 7.8. Triglyceride 226, cholesterol 196. Hemoglobin A1c was 11.7, calcium is 7.8. Further review of serum creatinine on September 07, 2019, creatinine was 4.08. On December 17, 2017, creatinine 1.92. Previous renal ultrasound on December 12, 2017, showed no masses, no obstruction. ASSESSMENT AND PLAN: 1. Acute kidney injury - I suspect this is a hemodynamically-mediated dysfunction. He has improved with IV hydration. Our plan is to further optimize his hemodynamics. I have decided to add albumin infusion 25 g IV q.6. I do not see any indication for any emergent dialysis with this patient. I feel that we can further still improve the renal function. 2. Chronic renal failure with a longstanding history of diabetes mellitus and proteinuria. He most likely has diabetic nephropathy. I did re-emphasise to the patient, his the importance of followup and better control with this high blood pressure and diabetes. They did understand it after a long conversation. We will recheck another basic metabolic profile in a.m. Job ID: [id number]
[2019-09-08] MEDS ORDERED: Rosuvastatin 20 MG TAB PO SCH (21:00)
[2019-09-09] MEDS: Albumin 25% 25 GM/100 ML BOT IVPB SCH (05:40)
[2019-09-09] MEDS: Sodium Chloride 0.9% 1,000 ML IV SCH (05:43)
[2019-09-09 06:41] LABS: Anion Gap 10 mmol/L (10-20); BUN (Urea Nitrogen) 22 mg/dL (8.9-20.6); Calc. Creatinine Clearance 38 mL/min (70-130); Carbon Dioxide 23 mmol/L (22-29); Chloride 107 mmol/L (98-107); Estimated GFR-MDRD 23; Glucose 94 mg/dL (70-105); Potassium 3.5 mmol/L (3.5-5.1); Sodium 136 mmol/L (136-145)
[2019-09-09 07:01] LABS: HIV (1/2) Antibody/Antigen Non-Reactive (NonReactive); HIV 1/2 INDEX 0.09 S/CO (<1.00)
[2019-09-09] MEDS: NIFEdipine XL 30 MG TAB PO SCH (07:45)
[2019-09-09] MEDS: Aspirin Chewable 81 MG TAB PO SCH (07:46)
[2019-09-09] MEDS: Carvedilol 25 MG TAB PO SCH (07:46)
[2019-09-09] MEDS: Insulin Glargine 20 UNITS in Pre-Filled Syringe 1 EACH SC SCH (07:47)
[2019-09-09] MEDS: Pioglitazone HCl 45 MG TAB PO SCH (08:45)
--- NOTE | 2019-09-09 09:27 | PRG ---
DATE OF SERVICE: 09/09/2019 SUBJECTIVE: Mr. Win is a 43-year-old male, who was seen for an acute kidney injury that was hemodynamically-mediated renal dysfunction. He also has underlying chronic renal failure from diabetic nephropathy. Empiric volume repletion was done with crystalloids as well as with albumin infusion. Renal function is noted to be slowly improving with the most recent creatinine of 3.05. Please note, he came in initially with a creatinine of 4.08. He voices no new complaints today. He denies any chest pain or shortness of breath. His diarrhea is much improved. In addition, his appetite is also improved. The patient denies any chest pain or shortness of breath. OBJECTIVE: VITAL SIGNS: Blood pressure 137/75, heart rate 76, respiratory rate 15, temperature 97.6, and O2 saturation 100%. GENERAL: Noted to be awake, alert, comfortable, not in distress. SKIN: Adequate turgor. HEENT: He has pinkish conjunctivae. Anicteric sclerae. NECK: No neck mass. No carotid bruits. No JVD. CHEST: No deformities. LUNGS: Clear breath sounds. No wheezing. No crackles. HEART: Normal sinus rhythm. No murmur. No gallops. No rubs. ABDOMEN: Globular, soft, and nontender. No masses. EXTREMITIES: No edema. No deformities. MEDICATIONS: Medications of September 09, 2019, were reviewed. LABORATORY DATA: Laboratories of September 08, 2019; white count 7.1, hemoglobin 15.2. On September 09, 2019, sodium 136, potassium 3.5, chloride 107, carbon dioxide 23, BUN 22, creatinine 3.05, glucose 94, and calcium 8. ASSESSMENT AND PLAN: 1. Acute kidney injury-superimposed hemodynamically-mediated renal dysfunction, which is much improved with IV hydration. Continue current IV hydration. Please note, the patient's p.o. intake has picked up. From a renal point of view, he can be discharged any time. We will follow him up [facility]. 2. Chronic renal failure secondary to diabetic nephropathy. Continue supportive care. Continue to optimize diabetes control as well as hypertension. Overall, agree with current management. If the patient discharged today, we will follow him up in the [facility]. He will call our office. I gave him my number. Job ID: [id number]
[2019-09-09 14:58] VITALS: BP 144/82; TEMP 97.9
--- NOTE | 2019-09-11 14:10 | EKG ---
Test Reason : HTN Blood Pressure : / mmHG Vent. Rate : 093 BPM Atrial Rate : 093 BPM P-R Int : 136 ms QRS Dur : 144 ms QT Int : 394 ms P-R-T Axes : 054 111 025 degrees QTc Int : 489 ms Normal sinus rhythm Possible Left atrial enlargement Right axis deviation Non-specific intra-ventricular conduction block Cannot rule out Septal infarct , age undetermined Abnormal ECG Confirmed by JOAQUÍN WOODARD DO ([id number]), photograph editor ABIGAIL MAZARIEGOS ([id number]) on 09/11/2019 2:10:12 PM Referred By: Confirmed By:JOAQUÍN WOODARD DO
== END 2019-09-09 15:30 | disposition home or self-care (01) | DRG 683 ==
LOC: ERS 15:23 → T4-B 19:23 → OBSVTOIN 19:51
PROVIDERS: ADMIT Specialist; ATTEND Specialist
DX: N17.9 Acute kidney failure, unspecified (principal); I16.9 Hypertensive crisis, unspecified; E11.22 Type 2 diabetes mellitus with diabetic chronic kidney disease; I12.9 Hypertensive chronic kidney disease with stage 1 through stage 4 chronic kidney disease, or unspecified chronic kidney disease; E11.21 Type 2 diabetes mellitus with diabetic nephropathy; E78.5 Hyperlipidemia, unspecified; N18.9 Chronic kidney disease, unspecified; E86.0 Dehydration; Z91.14 Patient's other noncompliance with medication regimen
CPT/HCPCS: 36415; 36416; 80048; 80053; 80061; 81001; 82533; 82550; 83036; 84443; 84484; 85025; 87086; 87389; 93005; J0360; J1815; P9047

== ENCOUNTER 2021-01-23 08:20 | Emergency (ER) | payer OTHER | END 2021-01-23 09:19 | disposition home or self-care (01) | LOC: ERS 08:20 | DX: H10.9 Unspecified conjunctivitis (principal); E11.9 Type 2 diabetes mellitus without complications; E78.5 Hyperlipidemia, unspecified; E78.00 Pure hypercholesterolemia, unspecified; I10 Essential (primary) hypertension | CPT/HCPCS: 99283 ==

== ENCOUNTER 2021-07-19 11:48 | Outpatient (CLI) | payer OTHER ==
[2021-07-20 00:11] LABS: SARS-CoV-2 PCR by NAA Not Detected (NotDetected)
== END 2021-07-19 11:49 | disposition home or self-care (01) ==
LOC: LABBT 11:48
PROVIDERS: ATTEND Specialist
DX: I12.0 Hypertensive chronic kidney disease with stage 5 chronic kidney disease or end stage renal disease (principal); E11.22 Type 2 diabetes mellitus with diabetic chronic kidney disease; N18.6 End stage renal disease; Z20.822 Contact with and (suspected) exposure to COVID-19
CPT/HCPCS: U0003; U0005

== ENCOUNTER 2022-07-17 23:10 | Inpatient (IN) | payer MEDICARE ==
[2022-07-18 00:31] VITALS: BMI 15.9
[2022-07-18] MEDS ORDERED: Ondansetron PF 4 MG/2 ML Vial IVP PRN (01:24)
[2022-07-18] MEDS ORDERED: Acetaminophen 325 MG TAB PO PRN (01:24)
[2022-07-18] MEDS ORDERED: Ondansetron ODT 4 MG TAB PO PRN (01:24)
[2022-07-18] MEDS ORDERED: Dextrose 50% Abboject 50 ML SYRINGE SLOW IVP PRN (01:24)
[2022-07-18] MEDS ORDERED: Dextrose 5% in Water 1,000 ML IV PRN (01:24)
[2022-07-18] MEDS ORDERED: VANCOMYCIN PERITONEAL DIALYSIS SLIDING SCALE FS SCH (02:15)
[2022-07-18] MEDS: fentaNYL 50 mcg/mL 1 mL Vial SLOW IVP PRN ×3 (03:10→14:25)
[2022-07-18] MEDS: HumaLOG 300 UNITS/3 ML VIAL SC PRN ×4 (06:23→20:48)
[2022-07-18 07:13] LABS: Hemoglobin A1c 10.2 % (4.0-6.0)
[2022-07-18 07:18] LABS: #Eosinphils 0.7 thou/uL (0.0-0.7); #Lymphocytes 1.7 thou/uL (1.20-3.40); #Monocytes 0.8 thou/uL (0.11-0.59); #Neutrophils 6.2 thou/uL (1.40-6.50); %Basophils 0.5 % (0.0-1.0); %Eosinophils 7.6 % (0.0-10.0); %Lymphocytes 17.7 % (21.0-51.0); %Monocytes 8.2 % (0.0-10.0); %Neutrophils 66.1 % (42.0-75.0); Hemoglobin 12.3 g/dL (14.0-18.0); Mean Corpuscular HGB CONC 33.7 g/dL (32.0-36.0); Mean Corpuscular Hemoglobin 33.7 pg (27.0-31.0); Mean Corpuscular Volume 99.8 fl (78.0-98.0); Mean Platelet Volume 7.3 fL (7.4-10.4); Platelet Count 376 10x3/uL (130-400); RBC Distribution Width 12.4 % (11.5-14.5); Red Blood Cell (RBC) Count 3.66 mill/uL (4.70-6.10); White Blood Cell (WBC) Count 9.3 10x3/uL (4.8-10.8)
[2022-07-18 07:33] LABS: Anion Gap 17 mmol/L (10-20); BUN (Urea Nitrogen) 39 mg/dL (8.9-20.6); Calc. Creatinine Clearance 6 mL/min (70-130); Carbon Dioxide 21 mmol/L (22-29); Chloride 96 mmol/L (98-107); Estimated GFR 5; Glucose 246 mg/dL (70-105); Potassium 3.2 mmol/L (3.5-5.1); Sodium 131 mmol/L (136-145)
[2022-07-18] MEDS ORDERED: NIFEdipine XL 30 MG TAB PO PRN (08:24)
[2022-07-18] MEDS ORDERED: Carvedilol 6.25 MG TAB PO SCH (08:45)
[2022-07-18] MEDS ORDERED: Vancomycin 1 GM in Premix Bag 1 BAG IVPB SCH (09:00)
[2022-07-18] MEDS: Heparin 5,000 UNITS/ML VIAL SC SCH ×3 (09:01→20:47)
[2022-07-18] MEDS: Cefepime 1 GM in Sodium Chloride 0.9% 100 ML IVPB SCH (09:01)
[2022-07-18 10:21] LABS: Hep B Core Total Ab Non-Reactive (NonReactive); Hep B Core Total Index 0.22 S/CO (0-0.79)
[2022-07-18 10:22] LABS: HBSAg Index 0.19 S/CO (0-0.99); Hep B Surf Ag Non-Reactive S/CO (NonReactive); Hep C IgG Ab Non-Reactive (NonReactive); Hep C Index 0.23 S/CO (0-0.79)
[2022-07-18 10:30] LABS: HBSAB Concentration 556.43 mIU/mL; Hep B Surf AB Reactive (NonReactive)
[2022-07-18] MEDS: Calcium Acetate 667 MG CAP PO SCH ×2 (11:49→17:47)
[2022-07-18] MEDS: Carvedilol 6.25 MG TAB PO SCH (17:47)
[2022-07-18] MEDS: Insulin Glargine 30 UNITS/0.3 ML VIAL SC SCH (20:32)
[2022-07-18] MEDS: Atorvastatin Calcium 20 MG TAB PO SCH (20:33)
[2022-07-19] MEDS: HumaLOG 300 UNITS/3 ML VIAL SC PRN ×2 (06:18→21:24)
[2022-07-19 07:52] LABS: #Basophils 0.1 thou/uL (0.0-0.2); #Eosinphils 0.8 thou/uL (0.0-0.7); #Lymphocytes 1.4 thou/uL (1.20-3.40); #Monocytes 0.8 thou/uL (0.11-0.59); #Neutrophils 6.3 thou/uL (1.40-6.50); %Basophils 0.8 % (0.0-1.0); %Eosinophils 8.7 % (0.0-10.0); %Monocytes 8.5 % (0.0-10.0); Hemoglobin 12.2 g/dL (14.0-18.0); Mean Corpuscular HGB CONC 32.2 g/dL (32.0-36.0); Mean Corpuscular Hemoglobin 32.1 pg (27.0-31.0); Mean Corpuscular Volume 99.7 fl (78.0-98.0); Mean Platelet Volume 7.3 fL (7.4-10.4); Platelet Count 360 10x3/uL (130-400); RBC Distribution Width 12.5 % (11.5-14.5); Red Blood Cell (RBC) Count 3.82 mill/uL (4.70-6.10); White Blood Cell (WBC) Count 9.5 10x3/uL (4.8-10.8)
[2022-07-19 07:57] LABS: ALT (SGPT) Less than 7 U/L (8-55); AST (SGOT) 8 U/L (5-34); Alkaline Phosphatase 108 U/L (40-110); Anion Gap 20 mmol/L (10-20); BUN (Urea Nitrogen) 44 mg/dL (8.9-20.6); Bilirubin, Total 0.4 mg/dL (0.2-1.2); Calc. Creatinine Clearance 6 mL/min (70-130); Calcium 8.2 mg/dL (7.8-10.44); Carbon Dioxide 20 mmol/L (22-29); Chloride 101 mmol/L (98-107); Estimated GFR 5; Globulin 3.5 g/dL (2.4-3.5); Glucose 132 mg/dL (70-105); Potassium 3.3 mmol/L (3.5-5.1); Protein, Total 6.5 g/dL (6.0-8.3); Sodium 138 mmol/L (136-145)
[2022-07-19 08:11] LABS: Vancomycin, Random 20.9 ug/mL (See Comment)
[2022-07-19] MEDS: Carvedilol 6.25 MG TAB PO SCH ×2 (08:19→16:31)
[2022-07-19] MEDS: Cefepime 1 GM in Sodium Chloride 0.9% 100 ML IVPB SCH (08:19)
[2022-07-19] MEDS: Calcium Acetate 667 MG CAP PO SCH ×3 (08:22→16:31)
[2022-07-19] MEDS: Heparin 5,000 UNITS/ML VIAL SC SCH ×3 (08:22→21:14)
[2022-07-19] MEDS ORDERED: Vancomycin HCl 250 MG in Sodium Chloride 0.9% 100 ML IVPB SCH (09:00)
[2022-07-19] MEDS ORDERED: Dextrose 50% Abboject 50 ML SYRINGE SLOW IVP SCH (09:00)
[2022-07-19] MEDS: Dextrose 5 % And 0.9 % NaCl 1,000 ML IV SCH ×2 (10:54→21:14)
[2022-07-19] MEDS ORDERED: fentaNYL PF 100 MCG/2 ML SYRINGE ONE ×2 (12:10)
[2022-07-19] MEDS ORDERED: Famotidine/PF 20 mg/2ml Vial ONE (12:25)
[2022-07-19] MEDS ORDERED: PROPOFOL 200 MG/20 ML VIAL ONE (12:27)
[2022-07-19] MEDS ORDERED: Dexamethasone 20 MG/5 ML VIAL ONE (12:27)
[2022-07-19] MEDS ORDERED: Lidocaine 1% PF 5 ML VIAL ONE (12:27)
[2022-07-19] MEDS ORDERED: Ondansetron PF 4 MG/2 ML Vial ONE (12:27)
[2022-07-19] MEDS ORDERED: ePHEDrine Sulfate 50 MG/10 ML VIAL ONE (12:27)
[2022-07-19] MEDS ORDERED: Metoclopramide HCl 10 MG/2 ML VIAL ONE (12:27)
[2022-07-19] MEDS ORDERED: Acetaminophen 500 MG TAB PO PRN (13:10)
[2022-07-19] MEDS ORDERED: Acetaminophen 500 MG TAB PO SCH (13:15)
[2022-07-19] MEDS ORDERED: Ondansetron HCl/PF 4 MG/2 ML Vial IVP PRN (13:22)
[2022-07-19] MEDS ORDERED: Promethazine HCl 25 MG/ML VIAL IM PRN (13:22)
[2022-07-19] MEDS ORDERED: fentaNYL 50 mcg/mL 1 mL Vial ONE ×2 (13:46→14:03)
[2022-07-19] MEDS: Insulin Glargine 30 UNITS/0.3 ML VIAL SC SCH (21:14)
[2022-07-19] MEDS: Atorvastatin Calcium 20 MG TAB PO SCH (21:15)
[2022-07-19] MEDS: traMADol HCl 50 MG TAB PO PRN (21:15)
[2022-07-20] MEDS: HumaLOG 300 UNITS/3 ML VIAL SC PRN ×4 (06:50→21:11)
[2022-07-20 07:09] LABS: #Lymphocytes 1.1 thou/uL (1.20-3.40); #Monocytes 0.6 thou/uL (0.11-0.59); #Neutrophils 11.6 thou/uL (1.40-6.50); %Basophils 0.3 % (0.0-1.0); %Eosinophils 0.4 % (0.0-10.0); %Lymphocytes 7.9 % (21.0-51.0); %Monocytes 4.8 % (0.0-10.0); %Neutrophils 86.7 % (42.0-75.0); Hemoglobin 12.8 g/dL (14.0-18.0); Mean Corpuscular Hemoglobin 35.3 pg (27.0-31.0); Mean Platelet Volume 7.8 fL (7.4-10.4); Platelet Count 340 10x3/uL (130-400); RBC Distribution Width 12.6 % (11.5-14.5); Red Blood Cell (RBC) Count 3.64 mill/uL (4.70-6.10); White Blood Cell (WBC) Count 13.4 10x3/uL (4.8-10.8)
[2022-07-20 07:24] LABS: ALT (SGPT) Less than 7 U/L (8-55); AST (SGOT) 6 U/L (5-34); Albumin 2.9 g/dL (3.5-5.0); Alkaline Phosphatase 104 U/L (40-110); Anion Gap 19 mmol/L (10-20); BUN (Urea Nitrogen) 45 mg/dL (8.9-20.6); Bilirubin, Total 0.4 mg/dL (0.2-1.2); Calc. Creatinine Clearance 6 mL/min (70-130); Calcium 8.1 mg/dL (7.8-10.44); Carbon Dioxide 18 mmol/L (22-29); Chloride 96 mmol/L (98-107); Estimated GFR 5; Globulin 3.9 g/dL (2.4-3.5); Potassium 3.3 mmol/L (3.5-5.1); Protein, Total 6.8 g/dL (6.0-8.3); Sodium 130 mmol/L (136-145)
[2022-07-20 07:31] LABS: Glucose 553 mg/dL (70-105)
[2022-07-20] MEDS: Calcium Acetate 667 MG CAP PO SCH ×3 (08:31→16:42)
[2022-07-20] MEDS: Cefepime 1 GM in Sodium Chloride 0.9% 100 ML IVPB SCH (08:31)
[2022-07-20] MEDS: Carvedilol 6.25 MG TAB PO SCH ×2 (08:31→16:42)
[2022-07-20] MEDS: Heparin 5,000 UNITS/ML VIAL SC SCH ×3 (08:32→21:11)
[2022-07-20] MEDS ORDERED: Insulin Glargine 30 UNITS/0.3 ML VIAL SC SCH (09:42)
[2022-07-20] MEDS ORDERED: Potassium Chloride 20 MEQ TAB PO SCH (10:45)
[2022-07-20] MEDS ORDERED: Vancomycin Sliding Scale 1 EACH FS SCH (12:00)
[2022-07-20] MEDS: traMADol HCl 50 MG TAB PO PRN (21:09)
[2022-07-20] MEDS: Amoxicillin/Potassium Clav 500 MG TAB PO SCH (21:10)
[2022-07-20] MEDS: Insulin Glargine 30 UNITS/0.3 ML VIAL SC SCH (21:10)
[2022-07-20] MEDS: Atorvastatin Calcium 20 MG TAB PO SCH (21:10)
[2022-07-21] MEDS: HumaLOG 300 UNITS/3 ML VIAL SC PRN ×2 (05:52→22:06)
[2022-07-21] MEDS: fentaNYL 50 mcg/mL 1 mL Vial SLOW IVP PRN (05:58)
[2022-07-21] MEDS: Heparin 5,000 UNITS/ML VIAL SC SCH ×3 (08:15→20:32)
[2022-07-21] MEDS: Carvedilol 6.25 MG TAB PO SCH ×2 (08:16→17:27)
[2022-07-21] MEDS: Amoxicillin/Potassium Clav 500 MG TAB PO SCH ×2 (08:16→20:31)
[2022-07-21] MEDS: Insulin Glargine 30 UNITS/0.3 ML VIAL SC SCH ×2 (08:16→20:33)
[2022-07-21] MEDS: Calcium Acetate 667 MG CAP PO SCH ×3 (08:16→17:27)
[2022-07-21] MEDS: Metoclopramide HCl 10 MG TAB PO SCH ×3 (11:08→20:31)
[2022-07-21] MEDS: traMADol HCl 50 MG TAB PO PRN (17:29)
[2022-07-21] MEDS: Atorvastatin Calcium 20 MG TAB PO SCH (20:31)
[2022-07-22 06:13] LABS: #Basophils 0.1 thou/uL (0.0-0.2); #Eosinphils 0.6 thou/uL (0.0-0.7); #Lymphocytes 1.4 thou/uL (1.20-3.40); #Monocytes 1.1 thou/uL (0.11-0.59); #Neutrophils 7.4 thou/uL (1.40-6.50); %Basophils 0.8 % (0.0-1.0); %Eosinophils 5.5 % (0.0-10.0); %Lymphocytes 13.6 % (21.0-51.0); %Monocytes 10.2 % (0.0-10.0); Hemoglobin 12.2 g/dL (14.0-18.0); Mean Corpuscular HGB CONC 34.1 g/dL (32.0-36.0); Mean Corpuscular Hemoglobin 34.5 pg (27.0-31.0); Mean Platelet Volume 7.3 fL (7.4-10.4); Platelet Count 324 10x3/uL (130-400); Red Blood Cell (RBC) Count 3.54 mill/uL (4.70-6.10); White Blood Cell (WBC) Count 10.5 10x3/uL (4.8-10.8)
[2022-07-22] MEDS: Metoclopramide HCl 10 MG TAB PO SCH ×2 (06:33→12:25)
[2022-07-22 06:41] LABS: Anion Gap 19 mmol/L (10-20); BUN (Urea Nitrogen) 45 mg/dL (8.9-20.6); Calc. Creatinine Clearance 6 mL/min (70-130); Calcium 8.4 mg/dL (7.8-10.44); Carbon Dioxide 21 mmol/L (22-29); Chloride 102 mmol/L (98-107); Estimated GFR 5; Glucose 147 mg/dL (70-105); Sodium 139 mmol/L (136-145)
[2022-07-22] MEDS ORDERED: Potassium Chloride 20 MEQ TAB PO SCH (08:00)
[2022-07-22] MEDS: Carvedilol 6.25 MG TAB PO SCH (08:45)
[2022-07-22] MEDS: Calcium Acetate 667 MG CAP PO SCH ×2 (08:45→12:25)
[2022-07-22] MEDS: Insulin Glargine 30 UNITS/0.3 ML VIAL SC SCH (08:46)
[2022-07-22] MEDS: Amoxicillin/Potassium Clav 500 MG TAB PO SCH (08:46)
[2022-07-22] MEDS: Heparin 5,000 UNITS/ML VIAL SC SCH ×2 (08:46→16:58)
[2022-07-22] MEDS ORDERED: Megestrol Acetate 800 MG/20 ML UDCUP PO SCH (09:00)
[2022-07-22] MEDS: fentaNYL 50 mcg/mL 1 mL Vial SLOW IVP PRN (10:10)
[2022-07-22] MEDS: traMADol HCl 50 MG TAB PO PRN (12:27)
[2022-07-22 17:05] VITALS: BP 132/79; TEMP 98.1
== END 2022-07-22 16:34 | disposition home or self-care (01) | DRG 239 ==
LOC: SURG A 23:53
PROVIDERS: ADMIT Internal Medicine; ATTEND Internal Medicine
PROC: 5A1D70Z Performance of Urinary Filtration, Intermittent, Less than 6 Hours Per Day (ICD-10-PCS; 2022-07-17)
PROC: 0Y6M0ZD Detachment at Right Foot, Partial 4th Ray, Open Approach (ICD-10-PCS; principal; 2022-07-19)
PROC: 0Y6M0ZF Detachment at Right Foot, Partial 5th Ray, Open Approach (ICD-10-PCS; 2022-07-19)
DX: E11.52 Type 2 diabetes mellitus with diabetic peripheral angiopathy with gangrene (principal); N18.6 End stage renal disease; I12.0 Hypertensive chronic kidney disease with stage 5 chronic kidney disease or end stage renal disease; M86.171 Other acute osteomyelitis, right ankle and foot; E11.69 Type 2 diabetes mellitus with other specified complication; E11.621 Type 2 diabetes mellitus with foot ulcer; E11.22 Type 2 diabetes mellitus with diabetic chronic kidney disease; E78.5 Hyperlipidemia, unspecified; L97.529 Non-pressure chronic ulcer of other part of left foot with unspecified severity; D63.1 Anemia in chronic kidney disease; E87.6 Hypokalemia; Z99.2 Dependence on renal dialysis; Z79.84 Long term (current) use of oral hypoglycemic drugs; Z79.4 Long term (current) use of insulin; Z79.899 Other long term (current) drug therapy
CPT/HCPCS: 36415; 36416; 80048; 80053; 80202; 83036; 85025; 86140; 86704; 87040; 88305; 88311; 97139; J0692; J1100; J1644; J1815; J2405; J2704; J2765; J3010; J3370; J3490; J7042; J7999; S0028

== ENCOUNTER 2024-01-02 13:04 | Inpatient (IN) | payer MEDICARE, OTHER ==
[2024-01-02 13:35] LABS: #Basophils 0.12 10x3/uL (0.0-0.2); %Basophils 1.4 % (0.0-1.0); %Eosinophils 13.2 % (0.0-10.0); %Lymphocytes 14.5 % (21.0-51.0); %Monocytes 8.9 % (0.0-10.0); %Neutrophils 61.6 % (42.0-75.0); Hematocrit 41.6 % (42.0-52.0); Hemoglobin 14.7 g/dL (14.0-18.0); Mean Corpuscular HGB CONC 35.3 g/dL (32.0-36.0); Mean Corpuscular Hemoglobin 32.7 pg (27.0-31.0); Mean Corpuscular Volume 92.4 fL (78.0-98.0); Mean Platelet Volume 10.1 fL (7.4-10.4); Platelet Count 222 10x3/uL (130-400); RBC Distribution Width 13.1 % (11.5-14.5)
[2024-01-02 13:53] LABS: PTT 33.5 sec (22.9-36.1); Prothrombin Time 13.5 sec (12.0-14.7)
[2024-01-02] MEDS ORDERED: Iopamidol-370 76% 500 ML MDV (1 ML CHARGE) ONE (14:19)
[2024-01-02 15:03] LABS: ALT (SGPT) 35 U/L (8-55); AST (SGOT) 31 U/L (5-34); Albumin 3.6 g/dL (3.5-5.0); Alkaline Phosphatase 154 U/L (40-110); Anion Gap 21 mmol/L (10-20); BUN (Urea Nitrogen) 48 mg/dL (8.9-20.6); Bilirubin, Total 1.3 mg/dL (0.2-1.2); Calc. Creatinine Clearance 0 mL/min (70-130); Carbon Dioxide 20 mmol/L (22-29); Chloride 96 mmol/L (98-107); Estimated GFR 7; Glucose 306 mg/dL (70-105); Potassium 4.1 mmol/L (3.5-5.1); Protein, Total 7.6 g/dL (6.0-8.3); Sodium 133 mmol/L (136-145)
[2024-01-02] MEDS ORDERED: Aspirin 325 MG TAB ONE (15:27)
[2024-01-02] MEDS ORDERED: Nitroglycerin 2% Ointment 1 INCH/1 GM Packet ONE (15:28)
[2024-01-02] MEDS ORDERED: hydrALAZINE 20 MG/ML VIAL ONE (15:28)
[2024-01-02] MEDS ORDERED: Ondansetron PF 4 MG/2 ML Vial IVP PRN (15:41)
[2024-01-02] MEDS ORDERED: Guaifenesin DM 100-10/5 ML UDCUP PO PRN (15:41)
[2024-01-02] MEDS ORDERED: Senokot S 8.6-50 MG TAB PO PRN (15:41)
[2024-01-02] MEDS ORDERED: Acetaminophen 325 MG TAB PO PRN (15:41)
[2024-01-02 17:41] VITALS: BMI 26.5
[2024-01-02] MEDS: Apixaban 5 MG TAB PO SCH (20:50)
[2024-01-02] MEDS: Insulin Glargine 30 UNITS/0.3 ML VIAL SC SCH (20:50)
[2024-01-02] MEDS: Insulin Lispro 100 UNIT/ML 10 ML VIAL SC PRN (20:50)
[2024-01-02] MEDS: glyBURIDE 5 MG TAB PO SCH (20:50)
[2024-01-02] MEDS ORDERED: Heparin 5,000 UNITS/ML VIAL SC SCH (21:00)
[2024-01-03 04:53] LABS: #Basophils 0.11 10x3/uL (0.0-0.2); %Basophils 1.3 % (0.0-1.0); %Lymphocytes 16.4 % (21.0-51.0); %Monocytes 10.3 % (0.0-10.0); %Neutrophils 56.6 % (42.0-75.0); Hematocrit 36.6 % (42.0-52.0); Hemoglobin 12.6 g/dL (14.0-18.0); Mean Corpuscular HGB CONC 34.4 g/dL (32.0-36.0); Mean Corpuscular Hemoglobin 32.9 pg (27.0-31.0); Mean Corpuscular Volume 95.6 fL (78.0-98.0); Mean Platelet Volume 10.2 fL (7.4-10.4); Platelet Count 213 10x3/uL (130-400); RBC Distribution Width 13.4 % (11.5-14.5); Red Blood Cell (RBC) Count 3.83 mill/uL (4.70-6.10)
[2024-01-03 05:16] LABS: Anion Gap 16 mmol/L (10-20); BUN (Urea Nitrogen) 57 mg/dL (8.9-20.6); Calc. Creatinine Clearance 11 mL/min (70-130); Calcium 7.5 mg/dL (7.8-10.44); Carbon Dioxide 26 mmol/L (22-29); Cardiac Risk 4.2 (Less than 4.5); Chloride 97 mmol/L (98-107); Cholesterol 130 mg/dl (< 200 Desired); Estimated GFR 6; Glucose 89 mg/dL (70-105); HDL Cholesterol 31 mg/dL (>60 Neg Risk); LDL Cholesterol, Calculated 53 mg/dL; Potassium 3.2 mmol/L (3.5-5.1); Sodium 136 mmol/L (136-145); Triglycerides 231 mg/dL (Less than 150)
[2024-01-03 07:40] LABS: Magnesium 2.1 mg/dL (1.6-2.6)
[2024-01-03] MEDS ORDERED: Non-Formulary Item 1 EACH (Carvedilol [Coreg] 12.5 MG Tab) PO PRN (07:52)
[2024-01-03] MEDS ORDERED: NIFEdipine XL 30 MG ER.TAB PO PRN (07:52)
[2024-01-03] MEDS ORDERED: Carvedilol 6.25 MG TAB PO PRN (07:56)
[2024-01-03] MEDS: Potassium Chloride 20 MEQ TAB PO SCH (08:15)
[2024-01-03] MEDS: Gabapentin 100 MG CAP PO SCH (08:15)
[2024-01-03] MEDS: Aspirin 81 mg Enteric Coated Tablet PO SCH (08:15)
[2024-01-03] MEDS: Levothyroxine Sodium 75 MCG TAB PO SCH (08:15)
[2024-01-03] MEDS ORDERED: cloNIDine 0.2mg/24 Hour PATCH TD SCH (09:00)
[2024-01-03] MEDS: Ergocalciferol 1.25 MG(50,000 UNITS) CAP PO SCH (09:20)
[2024-01-03 11:02] LABS: HBSAB Concentration 330.66 mIU/mL; HBsAg Index 0.24 S/CO (0-0.99); Hep B Core Total Ab NONREACTIVE (NonReactive); Hep B Core Total Index 0.12 S/CO (0-0.79); Hep B Surf AB REACTIVE (NonReactive); Hep B Surf Ag NONREACTIVE S/CO (NonReactive); Hep C IgG Ab NONREACTIVE S/CO (NonReactive)
[2024-01-03] MEDS ORDERED: Heparin 10,000 UNITS/ 10 ML VIAL ONE (14:40)
[2024-01-03] MEDS: cloNIDine 0.1mg/24 Hour PATCH TD SCH (16:46)
[2024-01-03] MEDS: hydrALAZINE 20 MG/ML VIAL SLOW IVP PRN (16:51)
[2024-01-03] MEDS ORDERED: cloNIDine 0.1mg/24 Hour PATCH TD SCH (17:00)
[2024-01-03] MEDS: Insulin Lispro 100 UNIT/ML 10 ML VIAL SC PRN (18:04)
[2024-01-03] MEDS: NIFEdipine XL 30 MG ER.TAB PO SCH (20:10)
[2024-01-03] MEDS: Apixaban 5 MG TAB PO SCH (20:10)
[2024-01-03] MEDS: Mirtazapine 15 MG TAB PO SCH (20:11)
[2024-01-03] MEDS ORDERED: MIRTAZAPINE 15 MG PO SCH (21:00)
[2024-01-04 04:38] LABS: #Basophils 0.11 10x3/uL (0.0-0.2); %Basophils 1.3 % (0.0-1.0); %Eosinophils 7.4 % (0.0-10.0); %Lymphocytes 14.2 % (21.0-51.0); %Monocytes 9.9 % (0.0-10.0); %Neutrophils 66.8 % (42.0-75.0); Hematocrit 40.6 % (42.0-52.0); Hemoglobin 13.6 g/dL (14.0-18.0); Mean Corpuscular HGB CONC 33.5 g/dL (32.0-36.0); Mean Corpuscular Hemoglobin 32.3 pg (27.0-31.0); Mean Corpuscular Volume 96.4 fL (78.0-98.0); Mean Platelet Volume 10.1 fL (7.4-10.4); Platelet Count 264 10x3/uL (130-400); RBC Distribution Width 13.3 % (11.5-14.5); Red Blood Cell (RBC) Count 4.21 mill/uL (4.70-6.10)
[2024-01-04 04:51] LABS: Anion Gap 15 mmol/L (10-20); BUN (Urea Nitrogen) 33 mg/dL (8.9-20.6); Calc. Creatinine Clearance 15 mL/min (70-130); Calcium 8.3 mg/dL (7.8-10.44); Carbon Dioxide 24 mmol/L (22-29); Chloride 101 mmol/L (98-107); Estimated GFR 9; Glucose 63 mg/dL (70-105); Magnesium 2.1 mg/dL (1.6-2.6); Potassium 3.5 mmol/L (3.5-5.1); Sodium 136 mmol/L (136-145)
[2024-01-04 09:08] LABS: Hemoglobin A1c 9.5 % (4.0-6.0)
[2024-01-04 11:51] VITALS: BP 146/77; TEMP 97.6
== END 2024-01-04 12:43 | disposition home or self-care (01) | DRG 304 ==
LOC: ERS 13:04 → 2SE 15:08
PROVIDERS: ADMIT Hospitalist; ATTEND Family Medicine
PROC: 5A1D70Z Performance of Urinary Filtration, Intermittent, Less than 6 Hours Per Day (ICD-10-PCS; principal; 2024-01-03)
DX: I16.1 Hypertensive emergency (principal); N18.6 End stage renal disease; T82.868A Thrombosis due to vascular prosthetic devices, implants and grafts, initial encounter; I12.0 Hypertensive chronic kidney disease with stage 5 chronic kidney disease or end stage renal disease; E11.22 Type 2 diabetes mellitus with diabetic chronic kidney disease; Y71.2 Prosthetic and other implants, materials and accessory cardiovascular devices associated with adverse incidents; Y84.1 Kidney dialysis as the cause of abnormal reaction of the patient, or of later complication, without mention of misadventure at the time of the procedure; D63.1 Anemia in chronic kidney disease; E87.6 Hypokalemia; E78.00 Pure hypercholesterolemia, unspecified; Z79.899 Other long term (current) drug therapy; Z86.718 Personal history of other venous thrombosis and embolism; Z79.84 Long term (current) use of oral hypoglycemic drugs; Z79.4 Long term (current) use of insulin; Z89.421 Acquired absence of other right toe(s); I08.1 Rheumatic disorders of both mitral and tricuspid valves; Z99.2 Dependence on renal dialysis
CPT/HCPCS: 36415; 36416; 70450; 70496; 70498; 70551; 80048; 80053; 80061; 82306; 83036; 83735; 83880; 84484; 85025; 85610; 85730; 86704; 86706; 86803; 87340; 93005; 93306; 96374; J0360; J1644; J1815; Q9967

== ENCOUNTER 2024-03-03 11:09 | Emergency (ER) | payer MEDICARE, OTHER ==
[2024-03-03] MEDS ORDERED: Morphine 4 MG/ML VIAL ONE (12:03)
[2024-03-03] MEDS ORDERED: Ondansetron PF 4 MG/2 ML Vial ONE (12:03)
[2024-03-09 12:35] LABS: Clarity Clear (Clear); Glucose, Urine (Dipstick) Greater than 1000 mg/dL (Negative); Leukocyte Negative Leu/uL (Negative); Nitrite Negative (Negative); Protein, Urine (Dipstick) 300 mg/dL (Neg-Trace); Specific Gravity, Urine 1.007 (1.002-1.036)
[2024-03-09 12:36] LABS: Bilirubin Negative (Negative); Blood, Urine Trace (Negative); Ketone, Urine Negative (Negative); RBC/HPF 0-3 HPF (0-3); Urobilinogen Normal mg/dL (Less than 2)
== END 2024-03-04 16:59 | disposition home or self-care (01) ==
LOC: ERS 11:09
DX: N39.0 Urinary tract infection, site not specified (principal); R10.30 Lower abdominal pain, unspecified; E11.9 Type 2 diabetes mellitus without complications; I10 Essential (primary) hypertension
CPT/HCPCS: 74176; 87086; J2272; J2405; 51701; 81003; 81015; 96374; 96375

== ENCOUNTER 2025-01-29 15:10 | Inpatient (IN) | payer MEDICARE, OTHER ==
[2025-01-29 16:39] LABS: #Basophils 0.09 10x3/uL (0.0-0.2); #Eosinophils 0.76 10x3/uL (0.0-0.7); #Monocytes 0.88 10x3/uL (0.11-0.59); #Neutrophils 6.47 10x3/uL (1.40-6.50); %Basophils 1.0 % (0.0-1.0); %Eosinophils 8.3 % (0.0-10.0); %Lymphocytes 9.8 % (21.0-51.0); %Monocytes 9.7 % (0.0-10.0); %Neutrophils 71.0 % (42.0-75.0); Hematocrit 39.3 % (42.0-52.0); Hemoglobin 13.1 g/dL (14.0-18.0); Mean Corpuscular Hemoglobin 32.0 pg (27.0-31.0); Mean Corpuscular Volume 95.9 fL (78.0-98.0); Platelet Count 240 10x3/uL (130-400); Red Blood Cell (RBC) Count 4.10 mill/uL (4.70-6.10); White Blood Cell (WBC) Count 9.11 10x3/uL (4.8-10.8)
[2025-01-29 17:02] LABS: ALT (SGPT) 9 U/L (Less than 45); AST (SGOT) 12 U/L (11-34); Albumin 3.8 g/dL (3.1-4.5); Alkaline Phosphatase 91 U/L (40-110); Anion Gap 18 mmol/L (10-20); BUN (Urea Nitrogen) 26 mg/dL (8.9-20.6); Bilirubin, Total 1.8 mg/dL (0.3-1.2); CRP, High Sensitivity at Bryan 1.67 mg/dL (< or = 0.5); Calc. Creatinine Clearance 0 mL/min (70-130); Calcium 8.2 mg/dL (7.8-10.44); Carbon Dioxide 29 mmol/L (22-29); Chloride 96 mmol/L (98-107); Globulin 3.5 g/dL (2.4-3.5); Glucose 211 mg/dL (70-105); Magnesium 2.2 mg/dL (1.6-2.6); Potassium 4.1 mmol/L (3.5-5.1); Sodium 139 mmol/L (136-145)
[2025-01-29 17:22] LABS: Actual Bicarbonate (HCO3v) 29.3 mEq/L (22-28); Base Excess 2.6 mEq/L (-2.0 to +3.0); Calcium, Ionized (venous) 1.00 mmol/L (1.16-1.32); Chloride (VBG) 95 mmol/L (98-106); Hematocrit-VBG 41 % (42.0-52.0); Hemoglobin (Hb) 14.1 g/dL (13.1-17.2); Potassium (VBG) 4.13 mmol/L (3.70-5.30); Sodium 138 mmol/L (133-146)
[2025-01-29] MEDS ORDERED: Ondansetron PF 4 MG/2 ML Vial ONE (18:50)
[2025-01-29] MEDS ORDERED: Cefepime 2 GM VIAL ONE (18:51)
[2025-01-29] MEDS ORDERED: Glucagon 1 MG/ML KIT IM PRN (19:20)
[2025-01-29] MEDS ORDERED: hydrALAZINE 20 MG/ML VIAL ONE (19:26)
[2025-01-29 20:26] VITALS: BMI 25.6
[2025-01-29] MEDS: Vancomycin 1.5 GM / NS 500ML VIAL-2-BAG IVPB SCH (20:31)
[2025-01-29] MEDS: hydrALAZINE 20 MG/ML VIAL SLOW IVP SCH (20:31)
[2025-01-29] MEDS: Heparin 5,000 UNITS/ML VIAL SC SCH (21:12)
[2025-01-29] MEDS ORDERED: Vancomycin Diaylsis Sliding Scale (Wt 71-99) FS SCH (23:15)
[2025-01-29] MEDS: Gabapentin 100 MG CAP PO SCH (23:53)
[2025-01-30] MEDS: hydrALAZINE 20 MG/ML VIAL SLOW IVP SCH (00:25)
[2025-01-30] MEDS ORDERED: Famotidine 20 MG TAB PO PRN (00:38)
[2025-01-30] MEDS ORDERED: Vancomycin Diaylsis Sliding Scale (Wt 71-99) FS SCH (01:00)
[2025-01-30] MEDS: Carvedilol 25 MG TAB PO SCH (01:00)
[2025-01-30] MEDS: Dextrose 50% Abboject 50 ML SYRINGE SLOW IVP PRN (05:59)
[2025-01-30 06:07] LABS: #Basophils 0.09 10x3/uL (0.0-0.2); #Eosinophils 0.95 10x3/uL (0.0-0.7); #Monocytes 0.94 10x3/uL (0.11-0.59); #Neutrophils 6.74 10x3/uL (1.40-6.50); %Basophils 0.9 % (0.0-1.0); %Eosinophils 10.0 % (0.0-10.0); %Lymphocytes 7.9 % (21.0-51.0); %Monocytes 9.9 % (0.0-10.0); %Neutrophils 71.0 % (42.0-75.0); Hematocrit 37.5 % (42.0-52.0); Hemoglobin 12.6 g/dL (14.0-18.0); Mean Corpuscular Hemoglobin 32.1 pg (27.0-31.0); Mean Corpuscular Volume 95.4 fL (78.0-98.0); Platelet Count 241 10x3/uL (130-400); Red Blood Cell (RBC) Count 3.93 mill/uL (4.70-6.10); White Blood Cell (WBC) Count 9.50 10x3/uL (4.8-10.8)
[2025-01-30 06:56] LABS: ALT (SGPT) 7 U/L (Less than 45); AST (SGOT) 14 U/L (11-34); Albumin 3.3 g/dL (3.1-4.5); Alkaline Phosphatase 79 U/L (40-110); Anion Gap 11 mmol/L (10-20); BUN (Urea Nitrogen) 35 mg/dL (8.9-20.6); Bilirubin, Total 1.8 mg/dL (0.3-1.2); Calc. Creatinine Clearance 10 mL/min (70-130); Calcium 8.2 mg/dL (7.8-10.44); Carbon Dioxide 29 mmol/L (22-29); Chloride 100 mmol/L (98-107); Globulin 3.7 g/dL (2.4-3.5); Glucose 85 mg/dL (70-105); Potassium 3.8 mmol/L (3.5-5.1); Sodium 136 mmol/L (136-145)
[2025-01-30] MEDS ORDERED: Vancomycin 1 GM in Premix 1 BAG IVPB SCH (09:00)
[2025-01-30] MEDS: Gabapentin 100 MG CAP PO SCH (09:20)
[2025-01-30] MEDS: Cholecalciferol 1,000 UNITS (25 MCG) TAB PO SCH (09:21)
[2025-01-30] MEDS: Enoxaparin 80 MG (0.8 mL) SYRINGE SC SCH (09:21)
[2025-01-30] MEDS: Ondansetron PF 4 MG/2 ML Vial IVP PRN (10:32)
[2025-01-30] MEDS: FLU (Fluarix Triv) 25-26 (6MOS UP)/PF 45 MCG/0.5 ML Syringe IM ONE (10:55)
[2025-01-30] MEDS: Carvedilol 25 MG TAB PO PRN (20:57)
[2025-01-31] MEDS: hydrALAZINE 20 MG/ML VIAL SLOW IVP PRN (05:12)
[2025-01-31 07:14] LABS: #Basophils 0.09 10x3/uL (0.0-0.2); #Eosinophils 1.10 10x3/uL (0.0-0.7); #Monocytes 0.90 10x3/uL (0.11-0.59); #Neutrophils 6.05 10x3/uL (1.40-6.50); %Basophils 1.0 % (0.0-1.0); %Eosinophils 12.1 % (0.0-10.0); %Lymphocytes 10.1 % (21.0-51.0); %Monocytes 9.9 % (0.0-10.0); %Neutrophils 66.5 % (42.0-75.0); Hematocrit 39.5 % (42.0-52.0); Hemoglobin 13.4 g/dL (14.0-18.0); Mean Corpuscular Hemoglobin 32.5 pg (27.0-31.0); Mean Corpuscular Volume 95.9 fL (78.0-98.0); Platelet Count 251 10x3/uL (130-400); Red Blood Cell (RBC) Count 4.12 mill/uL (4.70-6.10); White Blood Cell (WBC) Count 9.10 10x3/uL (4.8-10.8)
[2025-01-31 07:36] LABS: Anion Gap 19 mmol/L (10-20); BUN (Urea Nitrogen) 42 mg/dL (8.9-20.6); Calc. Creatinine Clearance 8 mL/min (70-130); Calcium 8.4 mg/dL (7.8-10.44); Carbon Dioxide 24 mmol/L (22-29); Chloride 98 mmol/L (98-107); Glucose 76 mg/dL (70-105); Potassium 4.4 mmol/L (3.5-5.1); Sodium 137 mmol/L (136-145); Vancomycin, Trough 18.0 ug/mL
[2025-01-31 07:55] LABS: HBSAB Concentration 330.07 mIU/mL; Hep B Core Total Ab NONREACTIVE (NonReactive); Hep B Core Total Index 0.16 S/CO (0-0.79); Hep B Surf Ag NONREACTIVE S/CO (NonReactive); Hep C IgG Ab NONREACTIVE S/CO (NonReactive); Hep C Index 0.22 S/CO (0-0.79)
[2025-01-31] MEDS: cloNIDine 0.2mg/24 Hour PATCH TD SCH (08:15)
[2025-01-31] MEDS: Calcitriol 0.25 MCG CAP PO SCH (10:29)
[2025-01-31] MEDS: Vancomycin HCl 750 MG in Sodium Chloride 0.9% 250 ML 250 ML IVPB SCH (18:09)
[2025-02-01 06:43] LABS: #Basophils 0.09 10x3/uL (0.0-0.2); #Eosinophils 1.02 10x3/uL (0.0-0.7); #Monocytes 0.96 10x3/uL (0.11-0.59); #Neutrophils 4.35 10x3/uL (1.40-6.50); %Basophils 1.2 % (0.0-1.0); %Eosinophils 13.4 % (0.0-10.0); %Lymphocytes 15.0 % (21.0-51.0); %Monocytes 12.6 % (0.0-10.0); %Neutrophils 57.4 % (42.0-75.0); Hematocrit 37.8 % (42.0-52.0); Hemoglobin 13.0 g/dL (14.0-18.0); Mean Corpuscular Hemoglobin 33.0 pg (27.0-31.0); Mean Corpuscular Volume 95.9 fL (78.0-98.0); Platelet Count 235 10x3/uL (130-400); Red Blood Cell (RBC) Count 3.94 mill/uL (4.70-6.10); White Blood Cell (WBC) Count 7.59 10x3/uL (4.8-10.8)
[2025-02-01 07:00] LABS: Anion Gap 16 mmol/L (10-20); BUN (Urea Nitrogen) 24 mg/dL (8.9-20.6); Calc. Creatinine Clearance 12 mL/min (70-130); Calcium 8.5 mg/dL (7.8-10.44); Carbon Dioxide 28 mmol/L (22-29); Chloride 96 mmol/L (98-107); Glucose 176 mg/dL (70-105); Potassium 4.6 mmol/L (3.5-5.1); Sodium 135 mmol/L (136-145)
[2025-02-01] MEDS: Insulin Glargine 30 UNITS/0.3 ML VIAL SC SCH ×3 (11:10→20:58)
[2025-02-02 07:34] LABS: #Basophils 0.08 10x3/uL (0.0-0.2); #Eosinophils 1.07 10x3/uL (0.0-0.7); #Monocytes 1.02 10x3/uL (0.11-0.59); #Neutrophils 5.68 10x3/uL (1.40-6.50); %Basophils 0.9 % (0.0-1.0); %Eosinophils 11.8 % (0.0-10.0); %Lymphocytes 12.9 % (21.0-51.0); %Monocytes 11.3 % (0.0-10.0); %Neutrophils 62.8 % (42.0-75.0); Hematocrit 40.6 % (42.0-52.0); Hemoglobin 13.1 g/dL (14.0-18.0); Mean Corpuscular Hemoglobin 31.6 pg (27.0-31.0); Mean Corpuscular Volume 97.8 fL (78.0-98.0); Platelet Count 258 10x3/uL (130-400); Red Blood Cell (RBC) Count 4.15 mill/uL (4.70-6.10); White Blood Cell (WBC) Count 9.05 10x3/uL (4.8-10.8)
[2025-02-02 07:50] LABS: Anion Gap 18 mmol/L (10-20); BUN (Urea Nitrogen) 36 mg/dL (8.9-20.6); Calc. Creatinine Clearance 10 mL/min (70-130); Calcium 8.7 mg/dL (7.8-10.44); Carbon Dioxide 25 mmol/L (22-29); Chloride 99 mmol/L (98-107); Glucose 84 mg/dL (70-105); Potassium 4.8 mmol/L (3.5-5.1); Sodium 137 mmol/L (136-145); Vancomycin, Trough 20.9 ug/mL
[2025-02-02] MEDS: NIFEdipine XL 60 MG ER.TAB PO SCH ×2 (13:51→19:57)
[2025-02-02] MEDS: Vancomycin 250 MG, Admixture Fee 1 EACH in Sodium Chloride 0.9% 100 ML IVPB SCH (17:52)
[2025-02-03 08:17] LABS: #Basophils 0.07 10x3/uL (0.0-0.2); #Eosinophils 0.65 10x3/uL (0.0-0.7); #Monocytes 0.79 10x3/uL (0.11-0.59); #Neutrophils 4.52 10x3/uL (1.40-6.50); %Basophils 1.0 % (0.0-1.0); %Eosinophils 9.1 % (0.0-10.0); %Lymphocytes 15.0 % (21.0-51.0); %Monocytes 11.0 % (0.0-10.0); %Neutrophils 63.2 % (42.0-75.0); Hematocrit 39.2 % (42.0-52.0); Hemoglobin 12.6 g/dL (14.0-18.0); Mean Corpuscular Hemoglobin 32.0 pg (27.0-31.0); Mean Corpuscular Volume 99.5 fL (78.0-98.0); Platelet Count 258 10x3/uL (130-400); Red Blood Cell (RBC) Count 3.94 mill/uL (4.70-6.10); White Blood Cell (WBC) Count 7.15 10x3/uL (4.8-10.8)
[2025-02-03 08:32] LABS: Anion Gap 17 mmol/L (10-20); BUN (Urea Nitrogen) 34 mg/dL (8.9-20.6); Calc. Creatinine Clearance 12 mL/min (70-130); Calcium 9.1 mg/dL (7.8-10.44); Carbon Dioxide 31 mmol/L (22-29); Chloride 96 mmol/L (98-107); Glucose 114 mg/dL (70-105); Potassium 5.3 mmol/L (3.5-5.1); Sodium 139 mmol/L (136-145)
[2025-02-03] MEDS ORDERED: NIFEdipine XL 60 MG ER.TAB PO SCH (09:00)
[2025-02-03] MEDS: LOKELMA 10 GM PACKET PO SCH (11:33)
[2025-02-03] MEDS: Acetaminophen 325 MG TAB PO PRN (20:23)
[2025-02-04 07:09] LABS: #Basophils 0.10 10x3/uL (0.0-0.2); #Eosinophils 0.90 10x3/uL (0.0-0.7); #Monocytes 1.05 10x3/uL (0.11-0.59); #Neutrophils 4.89 10x3/uL (1.40-6.50); %Basophils 1.2 % (0.0-1.0); %Eosinophils 10.5 % (0.0-10.0); %Lymphocytes 18.6 % (21.0-51.0); %Monocytes 12.3 % (0.0-10.0); %Neutrophils 56.9 % (42.0-75.0); Hematocrit 38.2 % (42.0-52.0); Hemoglobin 12.3 g/dL (14.0-18.0); Mean Corpuscular Hemoglobin 31.9 pg (27.0-31.0); Mean Corpuscular Volume 99.2 fL (78.0-98.0); Platelet Count 264 10x3/uL (130-400); Red Blood Cell (RBC) Count 3.85 mill/uL (4.70-6.10); White Blood Cell (WBC) Count 8.57 10x3/uL (4.8-10.8)
[2025-02-04 07:26] LABS: Anion Gap 20 mmol/L (10-20); BUN (Urea Nitrogen) 54 mg/dL (8.9-20.6); Calc. Creatinine Clearance 11 mL/min (70-130); Calcium 8.9 mg/dL (7.8-10.44); Carbon Dioxide 28 mmol/L (22-29); Chloride 95 mmol/L (98-107); Glucose 64 mg/dL (70-105); Potassium 5.1 mmol/L (3.5-5.1); Sodium 138 mmol/L (136-145); Vancomycin, Trough 17.9 ug/mL
[2025-02-04 07:27] LABS: CRP, High Sensitivity at Bryan 0.36 mg/dL (< or = 0.5)
[2025-02-04 13:42] LABS: INR-International Normal Ratio 1.0; Prothrombin Time 12.9 sec (12.0-14.7)
[2025-02-04 13:43] LABS: PTT 34.2 sec (22.9-36.1)
[2025-02-04] MEDS ORDERED: Lidocaine 1% w/Epinephrine 1:100K 20 ML VIAL ONE (13:50)
[2025-02-04] MEDS ORDERED: Sodium Bicarbonate 2.5 MEQ/5 ML SDV ONE (13:51)
[2025-02-04] MEDS ORDERED: CEFAZOLIN 2 GM VIAL ONE (14:10)
[2025-02-04] MEDS ORDERED: CEFAZOLIN 1 GM VIAL ONE (14:10)
[2025-02-04 23:01] VITALS: BMI 25.6
[2025-02-05 05:56] LABS: #Basophils 0.07 10x3/uL (0.0-0.2); #Eosinophils 0.63 10x3/uL (0.0-0.7); #Monocytes 0.98 10x3/uL (0.11-0.59); #Neutrophils 4.87 10x3/uL (1.40-6.50); %Basophils 0.9 % (0.0-1.0); %Eosinophils 8.5 % (0.0-10.0); %Lymphocytes 11.1 % (21.0-51.0); %Monocytes 13.2 % (0.0-10.0); %Neutrophils 65.9 % (42.0-75.0); Hematocrit 37.4 % (42.0-52.0); Hemoglobin 12.1 g/dL (14.0-18.0); Mean Corpuscular Hemoglobin 32.1 pg (27.0-31.0); Mean Corpuscular Volume 99.2 fL (78.0-98.0); Platelet Count 262 10x3/uL (130-400); Red Blood Cell (RBC) Count 3.77 mill/uL (4.70-6.10); White Blood Cell (WBC) Count 7.40 10x3/uL (4.8-10.8)
[2025-02-05 06:10] LABS: Anion Gap 15 mmol/L (10-20); BUN (Urea Nitrogen) 36 mg/dL (8.9-20.6); Calc. Creatinine Clearance 15 mL/min (70-130); Calcium 8.8 mg/dL (7.8-10.44); Carbon Dioxide 32 mmol/L (22-29); Chloride 98 mmol/L (98-107); Glucose 74 mg/dL (70-105); Potassium 5.8 mmol/L (3.5-5.1); Sodium 139 mmol/L (136-145)
[2025-02-05 06:11] LABS: CRP, High Sensitivity at Bryan 0.36 mg/dL (< or = 0.5)
[2025-02-05] MEDS: LOKELMA 10 GM PACKET PO SCH ×2 (14:29→23:16)
[2025-02-05 21:39] LABS: Potassium 5.4 mmol/L (3.5-5.1)
[2025-02-06 04:38] LABS: Anion Gap 20 mmol/L (10-20); BUN (Urea Nitrogen) 50 mg/dL (8.9-20.6); Calc. Creatinine Clearance 13 mL/min (70-130); Calcium 8.8 mg/dL (7.8-10.44); Carbon Dioxide 27 mmol/L (22-29); Chloride 93 mmol/L (98-107); Glucose 94 mg/dL (70-105); Potassium 4.4 mmol/L (3.5-5.1); Sodium 136 mmol/L (136-145)
[2025-02-06 04:39] LABS: CRP, High Sensitivity at Bryan 0.46 mg/dL (< or = 0.5)
[2025-02-06] MEDS: Apixaban 2.5 MG TAB PO SCH (09:08)
[2025-02-06] MEDS: Insulin Glargine 30 UNITS/0.3 ML VIAL SC SCH (21:22)
[2025-02-07 05:25] LABS: CRP, High Sensitivity at Bryan 0.40 mg/dL (< or = 0.5)
[2025-02-07 05:28] LABS: Anion Gap 19 mmol/L (10-20); BUN (Urea Nitrogen) 65 mg/dL (8.9-20.6); Calc. Creatinine Clearance 11 mL/min (70-130); Calcium 8.6 mg/dL (7.8-10.44); Carbon Dioxide 25 mmol/L (22-29); Chloride 95 mmol/L (98-107); Glucose 89 mg/dL (70-105); Potassium 6.2 mmol/L (3.5-5.1); Sodium 133 mmol/L (136-145)
[2025-02-07] MEDS: LOKELMA 10 GM PACKET PO SCH (07:59)
[2025-02-07] MEDS: Tuberculin PPD 0.1 ML SYRINGE (10 TEST VIAL) I-DERMAL SCH (14:38)
[2025-02-07] MEDS ORDERED: Heparin 10,000 UNITS/ 10 ML VIAL CATH PRN (16:14)
[2025-02-07] MEDS ORDERED: cloNIDine 0.1 MG TAB PO SCH (18:00)
[2025-02-07] MEDS: Insulin Glargine 30 UNITS/0.3 ML VIAL SC SCH (21:03)
[2025-02-08 05:43] LABS: #Basophils 0.05 10x3/uL (0.0-0.2); #Eosinophils 0.55 10x3/uL (0.0-0.7); #Monocytes 0.94 10x3/uL (0.11-0.59); #Neutrophils 5.72 10x3/uL (1.40-6.50); %Basophils 0.6 % (0.0-1.0); %Eosinophils 6.8 % (0.0-10.0); %Lymphocytes 9.9 % (21.0-51.0); %Monocytes 11.6 % (0.0-10.0); %Neutrophils 70.7 % (42.0-75.0); Hematocrit 32.8 % (42.0-52.0); Hemoglobin 10.5 g/dL (14.0-18.0); Mean Corpuscular Hemoglobin 32.0 pg (27.0-31.0); Mean Corpuscular Volume 100.0 fL (78.0-98.0); Platelet Count 218 10x3/uL (130-400); Red Blood Cell (RBC) Count 3.28 mill/uL (4.70-6.10); White Blood Cell (WBC) Count 8.09 10x3/uL (4.8-10.8)
[2025-02-08 05:57] LABS: Anion Gap 16 mmol/L (10-20); BUN (Urea Nitrogen) 41 mg/dL (8.9-20.6); Calc. Creatinine Clearance 16 mL/min (70-130); Calcium 8.5 mg/dL (7.8-10.44); Carbon Dioxide 28 mmol/L (22-29); Chloride 95 mmol/L (98-107); Glucose 112 mg/dL (70-105); Potassium 5.8 mmol/L (3.5-5.1); Sodium 133 mmol/L (136-145)
[2025-02-08 05:58] LABS: CRP, High Sensitivity at Bryan 0.50 mg/dL (< or = 0.5)
[2025-02-08] MEDS: LOKELMA 5 GM PACKET PO SCH (11:35)
[2025-02-08 17:34] LABS: Potassium 5.4 mmol/L (3.5-5.1)
[2025-02-10 05:39] LABS: #Basophils 0.08 10x3/uL (0.0-0.2); #Eosinophils 0.28 10x3/uL (0.0-0.7); #Monocytes 1.47 10x3/uL (0.11-0.59); #Neutrophils 7.28 10x3/uL (1.40-6.50); %Basophils 0.8 % (0.0-1.0); %Eosinophils 2.9 % (0.0-10.0); %Lymphocytes 6.2 % (21.0-51.0); %Monocytes 15.1 % (0.0-10.0); %Neutrophils 74.6 % (42.0-75.0); Hematocrit 30.9 % (42.0-52.0); Hemoglobin 10.0 g/dL (14.0-18.0); Mean Corpuscular Hemoglobin 32.7 pg (27.0-31.0); Mean Corpuscular Volume 101.0 fL (78.0-98.0); Platelet Count 190 10x3/uL (130-400); Red Blood Cell (RBC) Count 3.06 mill/uL (4.70-6.10); White Blood Cell (WBC) Count 9.75 10x3/uL (4.8-10.8)
[2025-02-10 05:59] LABS: Anion Gap 16 mmol/L (10-20); BUN (Urea Nitrogen) 35 mg/dL (8.9-20.6); Calc. Creatinine Clearance 17 mL/min (70-130); Calcium 9.1 mg/dL (7.8-10.44); Carbon Dioxide 30 mmol/L (22-29); Chloride 94 mmol/L (98-107); Glucose 116 mg/dL (70-105); Potassium 5.1 mmol/L (3.5-5.1); Sodium 135 mmol/L (136-145)
[2025-02-11 06:27] LABS: #Basophils 0.06 10x3/uL (0.0-0.2); #Eosinophils 0.58 10x3/uL (0.0-0.7); #Monocytes 1.30 10x3/uL (0.11-0.59); #Neutrophils 6.23 10x3/uL (1.40-6.50); %Basophils 0.7 % (0.0-1.0); %Eosinophils 6.6 % (0.0-10.0); %Lymphocytes 6.5 % (21.0-51.0); %Monocytes 14.8 % (0.0-10.0); %Neutrophils 71.1 % (42.0-75.0); Hematocrit 30.7 % (42.0-52.0); Hemoglobin 9.9 g/dL (14.0-18.0); Mean Corpuscular Hemoglobin 31.7 pg (27.0-31.0); Mean Corpuscular Volume 98.4 fL (78.0-98.0); Platelet Count 215 10x3/uL (130-400); Red Blood Cell (RBC) Count 3.12 mill/uL (4.70-6.10); White Blood Cell (WBC) Count 8.77 10x3/uL (4.8-10.8)
[2025-02-11 06:49] LABS: Anion Gap 20 mmol/L (10-20); BUN (Urea Nitrogen) 49 mg/dL (8.9-20.6); CK (CPK) Less than 9 U/L (30-200); Calc. Creatinine Clearance 12 mL/min (70-130); Calcium 9.2 mg/dL (7.8-10.44); Carbon Dioxide 28 mmol/L (22-29); Chloride 91 mmol/L (98-107); Glucose 92 mg/dL (70-105); Potassium 4.8 mmol/L (3.5-5.1); Sodium 134 mmol/L (136-145)
[2025-02-11] MEDS: READ PPD TEST SITE PO SCH (13:33)
[2025-02-12] MEDS ORDERED: Iopamidol-370 76% 500 ML MDV (1 ML CHARGE) ONE (13:57)
[2025-02-12] MEDS: hydrALAZINE 20 MG/ML VIAL SLOW IVP PRN (16:58)
[2025-02-14] MEDS: Mupirocin 1 GM TUBE NASAL DECOLONIZATION TP SCH (14:05)
[2025-02-14] MEDS: Gabapentin 300 MG CAP PO SCH (17:06)
[2025-02-14 20:01] LABS: Bacteria/HPF None Seen HPF (None Seen); Glucose, Urine (Dipstick) 300 mg/dL (Negative); Leukocyte Negative Leu/uL (Negative); Protein, Urine (Dipstick) 200 mg/dL (Neg-Trace); RBC/HPF 0-3 HPF (0-3); Specific Gravity, Urine 1.012 (1.002-1.036)
[2025-02-14] MEDS: Mupirocin 1 GM TUBE NASAL DECOLOIZATION TP SCH (20:54)
[2025-02-16 13:57] VITALS: BP 174/84
[2025-02-16 14:03] VITALS: TEMP 98.6
== END 2025-02-16 16:08 | disposition home or self-care (01) | DRG 637 ==
LOC: ERS 15:10 → T4-B 19:18 → INTOOBSV 19:18 → OBSVTOIN 01-30 16:26
PROVIDERS: ADMIT Internal Medicine; ATTEND Hospitalist
PROC: 3E03329 Introduction of Other Anti-infective into Peripheral Vein, Percutaneous Approach (ICD-10-PCS; principal; 2025-01-30)
PROC: 0JH63XZ Insertion of Tunneled Vascular Access Device into Chest Subcutaneous Tissue and Fascia, Percutaneous Approach (ICD-10-PCS; 2025-02-04)
PROC: 02HV33Z Insertion of Infusion Device into Superior Vena Cava, Percutaneous Approach (ICD-10-PCS; 2025-02-04)
PROC: B548ZZA Ultrasonography of Superior Vena Cava, Guidance (ICD-10-PCS; 2025-02-04)
PROC: XX20X89 Monitoring of Brain Electrical Activity, Computer-aided Detection and Notification, New Technology Group 9 (ICD-10-PCS; 2025-02-11)
DX: E11.69 Type 2 diabetes mellitus with other specified complication (principal); J18.9 Pneumonia, unspecified organism; N18.6 End stage renal disease; M86.9 Osteomyelitis, unspecified; Z99.2 Dependence on renal dialysis; E03.9 Hypothyroidism, unspecified; Z98.890 Other specified postprocedural states; I16.0 Hypertensive urgency; I82.621 Acute embolism and thrombosis of deep veins of right upper extremity; R19.7 Diarrhea, unspecified; E78.5 Hyperlipidemia, unspecified; E11.22 Type 2 diabetes mellitus with diabetic chronic kidney disease; E83.39 Other disorders of phosphorus metabolism; N25.81 Secondary hyperparathyroidism of renal origin; Z79.899 Other long term (current) drug therapy; E11.51 Type 2 diabetes mellitus with diabetic peripheral angiopathy without gangrene; I27.20 Pulmonary hypertension, unspecified; E87.5 Hyperkalemia; R50.9 Fever, unspecified; R51.9 Headache, unspecified; R41.0 Disorientation, unspecified; D64.9 Anemia, unspecified; E11.42 Type 2 diabetes mellitus with diabetic polyneuropathy; Z79.4 Long term (current) use of insulin; Z79.890 Hormone replacement therapy
CPT/HCPCS: 36415; 36416; 36561; 70450; 71045; 72126; 80048; 80053; 80202; 81001; 82010; 82550; 82805; 83605; 83735; 83970; 84100; 85025; 85520; 85610; 85730; 86141; 86580; 86704; 86706; 86803; 87040; 87086; 87340; 90935; 93005; 93923; 95700; 95711; 95957; 96365; 96367; 96372; 96375; 96376; 97139; C1751; C1769; G0257; G0378; J0360; J0690; J0692; J0878; J1644; J1650; J1815; J2185; J2405; J3010; J3371; J3373; J7030; J7050; J7999; Q0162; Q9967

== ENCOUNTER 2025-04-05 09:13 | Emergency (ER) | payer MEDICARE ==
[2025-04-05] MEDS ORDERED: Lidocaine 1% w/Epinephrine 1:100K 20 ML VIAL ONE (10:09)
== END 2025-04-05 12:28 | disposition home or self-care (01) ==
LOC: ERS 09:13
DX: Z45.2 Encounter for adjustment and management of vascular access device (principal); N18.6 End stage renal disease; E11.22 Type 2 diabetes mellitus with diabetic chronic kidney disease; M86.9 Osteomyelitis, unspecified; I10 Essential (primary) hypertension; R29.700 NIHSS score 0; Z79.899 Other long term (current) drug therapy; Z99.2 Dependence on renal dialysis; Z79.01 Long term (current) use of anticoagulants; Z79.890 Hormone replacement therapy; Z79.4 Long term (current) use of insulin
CPT/HCPCS: 36589